=== PATIENT | female | born 1980 | race Caucasian/White ===

== ENCOUNTER 2025-04-05 08:38 | Outpatient (AMB) | payer MEDICAID, SELFPAY ==
[2025-04-05 08:48] VITALS: BMI 53.3
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
== END 2025-04-05 09:19 | disposition home or self-care (01) ==
LOC: HO.HPHYS 08:38
PROVIDERS: PCP Student in an Organized Health Care Education/Training Program; Visit Provider Physical Medicine & Rehabilitation
DX: M53.3 Sacrococcygeal disorders, not elsewhere classified (principal); M46.1 Sacroiliitis, not elsewhere classified
CPT/HCPCS: 99214

== ENCOUNTER → 2025-04-05 08:38 | Outpatient (BNVA) | payer MEDICAID, SELFPAY | PROVIDERS: PCP Student in an Organized Health Care Education/Training Program; Visit Provider Physical Medicine & Rehabilitation | DX: M53.3 Sacrococcygeal disorders, not elsewhere classified (principal); M46.1 Sacroiliitis, not elsewhere classified; G89.29 Other chronic pain; M54.50 Low back pain, unspecified | CPT/HCPCS: 99212 ==

== ENCOUNTER 2025-04-15 09:45 | Outpatient (REF) | payer MEDICAID, SELFPAY ==
--- OUTSIDE RECORDS SUMMARY | 2025-04-15 10:44 | XMS_ITS | Continuity of Care Document ---
Author Organization [facility], Main Office Address [address] [facility] [address] [place] [id number] Care Team Providers Care Agricultural Equipment Sales Manager Name Role Phone BERTRAND OGLESBY Abrasive Coating Machine Operator KALEB STEELE Primary Care Provider JERRY LITTLE Building Construction Foreman [phone] Assessment No assessment recorded. Plan of Treatment Reminders Order Date Submit Date Provider Last Modified By Organization Details Last Modified Time Details Appointments FOLLOW UP 2025 02:45P M KALEB STEELE MD Not available Not available Not available Lab hemoglobi n A1C, fingersti ck 2024 025 In-Office Order, Internal Use Only DO Not Attach Compendium DO Not Attach Compendium, Do Not Delete/merge, [id number] 03/01/2025 14:59:04 Referral None recorded. Procedures None recorded. Surgeries None recorded. Imaging None recorded. Medication Orders atomoxeti ne 40 mg capsule 2024 025 [facility][id number], [address] [place], [id number], 03/01/2025 15:10:30 Mounjaro 5 mg/0.5 mL subcutane ous pen injector 2024 025 [facility] #[id number], [address] [place], [id number], 03/01/2025 15:10:31 Patient TargetsNo targets recorded. Patient Instructions Encounter Date Encounter Id Patient Instructions Last Modified By Organization Details Last Modified Time 03/01/2025 [id number] type 2 diabetes: care instructions Not available 03/01/2025 14:59:04 Reason for Referral None Reported. Results Created Date Observation Date Name Description Value Unit Range Abnormal Flag Note LastModifiedBy Organization Detail LastModifiedTime 03/01/2003/01/2025 hemog lobin A1C, finge rstic k A1C 6.7 % 4-6 high Not Available In-Office Order Internal Use Only DO Not Attach Compendium DO Not Attach Compendium, Do Not Delete/merge, [id number] 03/01/2025 07:45:49 04/04/2004/01/2025 MRI, lumba r plexu s, w/ contr ast No observ ation record ed. [facility] [address], [address], 04/04/2025 20:33:27 Result Notes None recorded. Problems Name Problem SNOMED Code Status Onset Date Resolution Date Notes Provider Name and Address Organization Details Recorded Time Dysuria 10346414 Completed 08/04/2015 Shasha adames [facility] 6 13:57:42 Insomnia 705402225 Completed 08/04/2015 Shasha adames [facility] 6 13:57:42 Fatigue 80889380 Completed 08/04/2015 Shasha adames [facility] 6 13:57:42 Disorder of pregnanc y 534941124 Completed 08/04/2015 Shasha adames [facility] 6 13:57:42 Body mass index 40+ - severely obese 281220009 Completed 10/14/2019 Mindy adames [facility] 4 12:04:21 General examinat ion of patient Completed 200811/16/2013 RECORDED 06/06/19 09 2:41PM BY EMMY HANCOCK MA, ANNOTATI ON/ADDEN DUM Shasha Glading-D ilorenzo null, [facility] 6 13:57:42 General examinat ion of patient Completed 200812/06/2013 RECORDED 06/06/19 09 2:41PM BY EMMY HANCOCK MA, ANNOTATI ON/ADDEN DUM Shasha Glading-D ilorenzo null, [facility] 6 13:57:42 Dysfunct ional uterine bleeding Completed 200811/16/2013 IMPRESSI ON: IRREGULA R MENSES, LONG CYCLES OF 35 DAYS, WILL START OCP'S FOR REGULATI ON,; RECORDED 11/01/19 09 2:28PM BY JUAN M RODAS, CEHLI ON/ADDEN DUM Shasha Glading-D ilorenzo null, [facility] 6 13:57:42 Acute sinusiti s 66400964 Completed 200811/16/2013 RECORDED 11/01/19 09 2:28PM BY JUAN M RODAS, CHELI ON/ADDEN DUM Shasha Glading-D ilorenzo null, [facility] 6 13:57:42 Administ ration of bacteria l and viral vaccine Completed 200811/16/2013 RECORDED 11/01/19 09 2:35PM BY JUAN M RODAS, OFFICE VISIT Shasha Edmondding-D sophiaorenlola adames, [facility] 6 13:57:42 Urinary tract infectio us disease 67121426 Completed 200811/16/2013 RECORDED 11/01/19 09 2:28PM BY CHELI GUERRERO ON/ADDEN DUM Shasha Glading-D ilorenzo null, [facility] 6 13:57:42 Vaginiti s and vulvovag initis Completed 200811/16/2013 RECORDED 11/01/19 09 2:28PM BY MA FRANCIS ADRIANNA, ANNOTATI ON/ADDEN DUM Shasha Glading-D ilorenzo null, [facility] 6 13:57:42 Dysfunct ional uterine bleeding Completed 200812/06/2013 IMPRESSI ON: IRREGULA R MENSES, LONG CYCLES OF 35 DAYS, WILL START OCP'S FOR REGULATI ON,; RECORDED 11/01/19 09 2:28PM BY JUAN M RODAS, CHELI ON/ADDEN DUM Shasha Glading-D ilorenzo null, [facility] 6 13:57:42 Acute sinusiti s 48527911 Completed 200812/06/2013 RECORDED 11/01/19 09 2:28PM BY JUAN M RODAS, CHELI ON/ADDEN DUM Shasha Glading-D ilorenzo null, [facility] 6 13:57:42 Administ ration of bacteria l and viral vaccine Completed 200812/06/2013 RECORDED 11/01/19 09 2:35PM BY JUAN M RODAS, OFFICE VISIT Shasha Glading-D ilorenzo null, [facility] 6 13:57:42 Vaginiti s and vulvovag initis Completed 200812/06/2013 RECORDED 11/01/19 09 2:28PM BY JUAN M RODAS, EMMAATI ON/ADDEN DUM Shasha Glading-D ilorenzo null, [facility] 6 13:57:42 Tubercul osis screenin g Completed 200911/16/2013 DATE: 08/23/19 10; RECORDED 06/22/19 14 12:44PM BY JENELLE COVARRUBIAS MA, CHELI ON/ADDEN DUM Shasha Glading-D ilorenzo null, [facility] 6 13:57:42 Tubercul osis screenin g Completed 200912/06/2013 DATE: 08/23/19 10; RECORDED 06/22/19 14 12:44PM BY JENELLE COVARRUBIAS MA, EMMAATI ON/ADDEN DUM Shasha Glading-D ilorenzo null, [facility] 6 13:57:42 Acute pharyngi tis [id number] Completed 201111/16/2013 IMPRESSI ON: RAPID STREP NEGATIVE ; RECORDED 02/27/20 12 2:30PM BY CHELI SPRINGER ON/ADDEN DUM Shasha Glading-D ilorenzo null, [facility] 6 13:57:42 Screenin g for malignan t neoplasm of cervix Completed 201111/16/2013 RECORDED 02/27/20 12 2:30PM BY CHELI SPRINGER ON/ADDEN DUM Shasha Glading-D ilorenzo null, [facility] 6 13:57:42 Genital herpes simplex 15744754 Completed 201111/16/2013 RECORDED 02/27/20 12 2:31PM BY CHELI SPRINGER ON/ADDEN DUM Emmy aguayo [place] null, [facility] 7 15:01:59 Well child 563547418 Completed 201111/16/2013 RECORDED 02/27/20 12 2:30PM BY CHELI SPRINGER ON/ADDEN DUM Shasha Glading-D ilorenzo null, [facility] 6 13:57:42 Shoulder joint pain 673273669 Completed 201111/16/2013 RECORDED 02/27/20 12 2:30PM BY CHELI SPRINGER ON/ADDEN DUM Shasha Glading-D ilorenzo null, [facility] 6 13:57:42 Eruption 970133676 Completed 201111/16/2013 RECORDED 02/27/20 12 2:30PM BY CHELI SPRINGER ON/ADDEN DUM Shasha Glading-D ilorenzo null, [facility] 6 13:57:42 Adult health examinat ion Completed 201111/16/2013 RECORDED 02/27/20 12 2:30PM BY CHELI SPRINGER ON/ADDEN DUM Shasha Glading-D ilorenzo null, [facility] 6 13:57:42 Acute pharyngi tis 628243613 Completed 201112/06/2013 IMPRESSI ON: RAPID STREP NEGATIVE ; RECORDED 02/27/20 12 2:30PM BY CHELI SPRINGER ON/ADDEN DUM Shasah Glading-D ilorenzo null, [facility] 6 13:57:42 Screenin g for malignan t neoplasm of cervix Completed 201112/06/2013 RECORDED 02/27/20 12 2:30PM BY CHELI SPRINGER ON/ADDEN DUM Shasha Glading-D ilorenzo null, [facility] 6 13:57:42 Well child 544980552 Completed 201112/06/2013 RECORDED 02/27/20 12 2:30PM BY CHELI SPRINGER ON/ADDEN DUM Shasha Glading-D ilorenzo null, [facility] 6 13:57:42 Shoulder joint pain 662198967 Completed 201112/06/2013 RECORDED 02/27/20 12 2:30PM BY CHELI SPRINGER ON/ADDEN DUM Shasha Glading-D ilorenzo null, [facility] 6 13:57:42 Eruption 882185740 Completed 201112/06/2013 RECORDED 02/27/20 12 2:30PM BY CHELI SPRINGER ON/ADDEN DUM Shasha Glading-D ilorenzo null, [facility] 6 13:57:42 Adult health examinat ion Completed 201112/06/2013 RECORDED 02/27/20 12 2:30PM BY CHELI SPRINGER ON/ADDEN DUM Shasha Glading-D ilorenzo null, [facility] 6 13:57:42 Influenz a vaccine needed 44707950766 06 Completed 201211/16/2013 RECORDED 12/31/19 13 2:01PM BY JOSE M LEE, OFFICE VISIT Shasha adames, [facility] 6 13:57:42 Influenz a vaccine needed 54197052292 06 Completed 201212/06/2013 RECORDED 12/31/19 13 2:01PM BY JOSE M LEE, OFFICE VISIT Shasha adames, [facility] 6 13:57:42 Patient status finding [id number] Completed 201308/04/2015 RECORDED 06/22/19 14 12:44PM BY JENELLE COVARRUBIAS MA, OFFICE VISIT Shasha adames, [facility] 6 13:57:42 Knee pain Completed 201311/16/2013 IMPRESSI ON: SOUNDS DUE TO MENISCUS , PT TO SET UP APPT WITH [facility]; RECORDED 06/22/19 14 12:44PM BY JENELLE COVARRUBIAS MA, ANNOTATI ON/ADDEN DUM Shasha adames, [facility] 6 13:57:42 Elevated blood-pr essure reading without diagnosi s of hyperten diann 139466901 Completed 201311/16/2013 IMPRESSI ON: BP WELL CONTROLL ED, LIMITS HER SALT, PT TO WORK ON WEIGHT LOSS; RECORDED 06/22/19 14 12:44PM BY JENELLE COVARRUBIAS MA, ANNOTATI ON/ADDEN DUM Shasha adames, [facility] 6 13:57:42 Corneal ulcer 79800655 Completed 201311/16/2013 RECORDED 06/22/19 14 12:44PM BY JENELLE COVARRUBIAS MA, ANNOTATI ON/ADDEN DUM Shasha Bermeo-D quentin adames, [facility] 6 13:57:42 History of depressi on 941110428 Completed 201308/04/2015 RECORDED 06/22/19 14 12:44PM BY JENELLE COVARRUBIAS MA, OFFICE VISIT Shasha adames [facility] 6 13:57:42 Esstirso l hyperten diann 07531372 Completed 201308/04/2015 IMPRESSI ON: BP UP, SHERRY LOWER SALT AND LOSE WEIGHT, EKG NL, FOLLOWED BY RENAL TOO; RECORDED 06/22/19 14 12:44PM BY JENELLE COVARRUBIAS MA, OFFICE VISIT Shasha adames [facility] 6 13:57:42 Malaise and fatigue 317144972 Completed 201311/16/2013 IMPRESSI ON: ALSO WITH VITILGO, CHECK LABS; RECORDED 06/22/19 14 12:44PM BY JENELLE COVARRUBIAS MA, ANNOTATI ON/ADDEN DUM Shasha adames [facility] 6 13:57:42 Adult health examinat ion Completed 201308/04/2015 IMPRESSI ON: PAP UTD, NEEDS TO LOSE WEIGHT, EXERCISE ; RECORDED 06/22/19 14 12:47PM BY JENELLE COVARRUBIAS MA, OFFICE VISIT Shasha adames [facility] 6 13:57:42 Genital herpes simplex 09151190 Active 2013 JUAN M Sharma, [facility] 7 15:01:59 Pure hypercho lesterol emia 099565919 Completed 201308/04/2015 RECORDED 06/22/19 14 12:44PM BY JENELLE COVARRUBIAS MA, OFFICE VISIT Shasha adames [facility] 6 13:57:42 Overweig ht 623236719 Completed 201311/16/2013 IMPRESSI ON: PT WILL SET UP APPT; RECORDED 06/22/19 14 12:44PM BY JENELLE COVARRUBIAS MA, ANNOTATI ON/ADDEN DUM Shasha adames, [facility] 6 13:57:42 Elevated blood-pr essure reading without diagnosi s of hyperten diann 828949565 Completed 201308/04/2015 IMPRESSI ON: DISCVan SHARMABERNY ENRIQUEZ OF DIET AND WEIGHT LOSS, FOLLOWED BY DIAMANTE 'MOON), HAS UPCOMING APPT.; RECORDED 06/22/19 14 3:43PM BY HERNAN ELIZABETH PA-C, OFFICE VISIT Shasha adames, [facility] 6 13:57:42 Disorder of sacrum 62814319 Completed 201308/04/2015 RECORDED 06/22/19 14 12:44PM BY JENELLE COVARRUBIAS MA, OFFICE VISIT Shasha adames, [facility] 6 13:57:42 Morbid obesity 287410373 Completed 201310/14/2019 Shasha adames, [facility] 0 13:19:30 Knee pain Completed 201312/06/2013 IMPRESSI ON: SOUNDS DUE TO MENISCUS , PT TO SET UP APPT WITH [facility]; RECORDED 06/22/19 14 12:44PM BY JENELLE COVARRUBIAS MA, CHELI ON/ADDEN DUM Shasha adames, [facility] 6 13:57:42 Elevated blood-pr essure reading without diagnosi s of hyperten diann 506368318 Completed 201312/06/2013 IMPRESSI ON: BP WELL CONTROLL ED, LIMITS HER SALT, PT TO WORK ON WEIGHT LOSS; RECORDED 06/22/19 14 12:44PM BY JENELLE COVARRUBIAS MA, ANNOTIZZY ON/ADDEN DUM Shasha adames, [facility] 6 13:57:42 Corneal ulcer 39545668 Completed 201312/06/2013 RECORDED 06/22/19 14 12:44PM BY JENELLE COVARRUBIAS MA, EMMAATI ON/ADDEN DUM Shasha Glading-D ilorenzo null, [facility] 6 13:57:42 Malaise and fatigue 128235304 Completed 201312/06/2013 IMPRESSI ON: ALSO WITH VITILGO, CHECK LABS; RECORDED 06/22/19 14 12:44PM BY JENELLE COVARRUBIAS MA, CHELI ON/ADDEN DUM Shasha Glading-D ilorenzo null, [facility] 6 13:57:42 Overweig ht [id number] Completed 201312/06/2013 IMPRESSI ON: PT WILL SET UP APPT; RECORDED 06/22/19 14 12:44PM BY JENELLE COVARRUBIAS MA, CHELI ON/ADDEN DUM Shasha Glading-D ilorenzo null, [facility] 6 13:57:42 Urinary tract infectio us disease 21574702 Completed 201308/04/2015 RECORDED 09/28/19 14 10:08AM BY ALONZO RUIZ, NURSE TRIAGE Shashaligia Edmondalexandra-D ilorenlola null, [facility] 6 13:57:42 Hyperten sive disorder 17687847 Active 2018 Jose M Lee [place] null, [facility] 9 15:54:20 Chronic depressi on 176694487 Completed 201904/14/2020 Shasha Bermeo-D ilorenzo null, [facility] 16:28:14 Chronic depressi on 242878877 Completed 202006/07/2020 Shasha Glading-D ilorenzo null, [facility] 16:28:14 Family history of breast cancer 907221029 Active 2020 Shasha Bermeo-D ilorenzo null, [facility] 16:49:14 Major depressi on single episode, in partial remissio n 08669720 Active 2021 Shasha Quinonez rogeliotrevonlola null, [facility] 2 16:19:35 Liver enzymes level above referenc e range 452789112 Active 2021 Loreto sargent null, [facility] 2 00:00:26 Recurren t urinary tract infectio n 684269059 Active 2021 Theresa Saucedo PA-C [address], [place], [address], [facility] 2 11:36:03 Obstruct brennon sleep apnea syndrome 22675752 Active 2023 KALEB STEELE MD [address] [facility] [address], [place], [address], [facility] 4 16:20:53 Type 2 diabetes mellitus without complica tion 015096364 Active 2023 KALEB STEELE MD [address], [place], [address], [facility] 4 13:50:32 Problem Notes None recorded. Procedures Surgical History Date Name Laterality Status Provider Name and Address Organization Details Recorded Time 5 Date of Last Colonoscopy completed Ghazala Reaves [facility] 06/30/2024 12:10:26 5 Colonoscopy completed Ghazala Reaevs [facility] 06/30/2024 12:10:10 5 Diabetic Foot Exam (Monofilament) completed KALEB STEELE MD [address] [facility] [address], [place], [address], [facility] 05/05/2024 15:30:49 4 Most Recent Mammogram completed Lninea Jay [facility] 02/10/2024 11:05:45 2 Mammogram both breasts completed Adina Evans [facility] 01/28/2022 13:25:36 2 Date of Last Pap Smear completed Jose M Lee MA [facility] 10/24/2022 09:13:57 6 Tubal Ligation completed Dawn Day RN [facility] 05/05/2015 07:57:57 1 Caesarean Section completed Dahlia Guerrero MA [facility] 10/19/2021 14:26:57 Caesarean Section completed Jose M Lee MA [facility] 10/18/2020 15:27:47 Imaging Results None recorded. Procedure Notes None recorded. Medical Equipment None Reported. Allergies Allergen ID Allergen Name Allergen Category Reaction Reaction Severity Criticality Documentation Date Start Date Code Code System Note Provider Name and Address Organization Details Recorded Time 28026 Zoloft medicatio n nausea severe Not available 09/03/2019 12442 RxNorm JUAN M Springer [facility] 0 14:18:29 23336 sertralin e medicatio n Not available Not available Not available 03/17/2025 21663 RxNorm Not Available alex - External Data Service - prod 5 15:05:59 Medications Name Sig Start Date Stop Date Status Note LastModified by Organization Details LastModified Time plus 27-1 mg tabs 08/02 completed Not Available Not Available Not Available oxycodone hcl 5 mg tabs active Not Available Not Available Not Available valacyclo vir hcl 500 mg tabs active Not Available Not Available Not Available nitrofura ntoin monohydra te/macroc rystals 100 mg caps active Not Available Not Available Not Available sodium sulfaceta mide/sulf ur cleanser 10-5 % emul active Not Available Not Available Not Available metronida zole 500 mg tabs active Not Available Not Available Not Available bren-be 0.35 mg tabs active Not Available Not Available Not Available Prescript ion - Prior Authoriza tion Request active Not Available Not Available Not Available preplus 27-1 mg tabs active Not Available Not Available Not Available valacyclo vir hcl 1 gm tabs active Not Available Not Available Not Available mupirocin 2 % oint active Not Available Not Available Not Available fluoxetin e 40 mg capsule 10/18 completed Not Available Not Available Not Available paroxetin e 10 mg tablet TAKE 1 TABLET BY MOUTH EVERY DAY FOR 14 DAYS 03/01 completed Not Available Not Available Not Available citalopra m 40 mg tablet TAKE 1 TABLET BY MOUTH EVERY DAY active Not Available Not Available No t Available trazodone 50 mg tablet Take 1 tablet as needed by oral route at bedtime for 30 days. 04/14 completed Not Available Not Available Not Available tizanidin e 4 mg tablet 04/12 completed Not Available Not Available Not Available fluconazo le 150 mg tablet EVERY 3 DAYS 11/23 completed RECORDED 06/06/19 09 9:59AM BY BALTAZAR Mckeon NP, MEDICATI ON [facility]; Not Available Not Available Not Available citalopra m 10 mg tablet TAKE 1 TABLET BY MOUTH EVERY DAY FOR 14 DAYS 03/01 completed Not Available Not Available Not Available valacyclo vir 1 gram tablet TAKE 1 TABLET BY MOUTH EVERY DAY active Not Available Not Available No t Available meloxicam 15 mg tablet TAKE 1 TABLET BY MOUTH EVERY DAY 2024 active Not Available Not Available Not Avai lable metronida zole 0.75 % (37.5 mg/5 gram) vaginal gel EACH EVENING 08/02 completed Not Available Not Available Not Available lisinopri l 20 mg tablet TAKE 1 TABLET BY MOUTH EVERY DAY DIRECTED 05/17 completed Not Available Not Available Not Available Tubersol 5 tub. unit/0.1 mL intraderm al injection solution Inject 0.1 mL as needed by intrader mal route. 09/23 completed Not Available Not Available Not Available sulfaceta mide sodium-murillo lfur 10 %-5 % (w/w) topical cleanser aplly to skin and wash daily 10/18 completed Not Available Not Available Not Available metronida zole 500 mg tablet 09/23 completed Not Available Not Available Not Available ciproflox acin 250 mg tablet Take 1 tablet every 12 hours by oral route for 7 days. active Not Available Not Available No t Available levofloxa tavo 250 mg tablet TAKE 1 TABLET BY MOUTH EVERY DAY FOR 5 DAYS 06/26 completed Not Available Not Available Not Available valacyclo vir 500 mg tablet TAKE 2 TABLETS BY MOUTH EVERY DAY 04/19 completed Not Available Not Available Not Available sulfameth oxazole 800 mg-trimet hoprim 160 mg tablet TAKE 1 TABLET BY MOUTH EVERY 12 HOURS FOR 7 DAYS 06/26 completed Not Available Not Available Not Available peg-elect rolyte solution 420 gram oral solution AT 5PM EVENING BEFORE MIX AND DRINK 8OZ GLASS AT YOUR OWN PACE UNTIL 1ST HALF COMPLETE THEN FINISH 2ND HALF 6 HOURS PRIOR TO PROCEDUR E 08/06 completed Not Available Not Available Not Available ofloxacin 0.3 % ear drops INSTILL 10 DROPS INTO AFFECTED EAR(S) BY OTIC ROUTE ONCE DAILY 7 10/30 completed Not Available Not Available Not Available citalopra m 20 mg tablet TAKE 1 TABLET BY MOUTH EVERY DAY FOR 14 DAYS 03/01 completed Not Available Not Available Not Available potassium chloride ER 20 mEq tablet,ex tended release(p art/cryst ) Take 1 tablet every day by oral route for 30 days. 04/12 completed Not Available Not Available Not Available prednisol one acetate 1 % eye drops,regis pension TAKE 1 DROP OPERATIV E EYE THREE TIMES DAILY FOR 5 DAYS FOLLOWIN G LASER 04/19 completed Not Available Not Available Not Available econazole nitrate 1 % topical cream Apply TO affected AREA ON foot TWICE A DAY FOR 3 consecut brennon WEEKS 10/30 completed Not Available Not Available Not Available cephalexi n 500 mg capsule active Not Available Not Available Not Available paroxetin e 20 mg tablet TAKE 1 TABLET BY MOUTH EVERY DAY 2024 active Not Available Not Available Not Avai lable ranitidin e 150 mg tablet 1 IN AM 1 IN PM 02/26 completed RECORDED 02/27/20 12 2:34PM BY JOSE M LEE, OFFICE VISIT; Not Available Not Available Not Available lisinopri l 10 mg tablet TAKE 1 TABLET BY MOUTH EVERY DAY DIRECTED 12/27 completed Not Available Not Available Not Available propranol ol ER 80 mg capsule,2 4 hr,extend ed release 10/18 completed Not Available Not Available Not Available metronida zole 0.75 % topical cream RYAN AA BID 10/18 completed Not Available Not Available Not Available lisinopri l 30 mg tablet TAKE 1 TABLET BY MOUTH EVERY DAY active Not Available Not Available No t Available sertralin e 25 mg tablet Take 1 tablet every day by oral route for 30 days. 07/19 completed Not Available Not Available Not Available Cleocin 2 % vaginal cream AT BEDTIME 11/26 completed RECORDED 06/06/19 09 9:59AM BY BALTAZAR Mckeon NP, MEDICATI ON [facility]; Not Available Not Available Not Available lisinopri l 5 mg tablet Take 1 tablet every day by oral route for 30 days. 04/12 completed Not Available Not Available Not Available hydrochlo rothiazid e 25 mg tablet 1 po prn 12/22 completed Not Available Not Available Not Available mometason e 0.1 % topical ointment APPLY TOPICALL Y TO THE AFFECTED AREA TWICE DAILY FOR 2 WEEKS NEEDED FOR ECZEMA active Not Available Not Available No t Available metoprolo l succinate ER 25 mg tablet,ex tended release 24 hr TAKE 1 TABLET BY MOUTH EVERY DAY active Not Available Not Available No t Available clobetaso l 0.05 % topical ointment apply thin layer 09/10 completed Not Available Not Available Not Available ketoconaz ole 2 % topical cream APPLY TO FOOT TWICE DAILY FOR TWO WEEKS 09/10 completed Not Available Not Available Not Available doxycycli ne hyclate 100 mg tablet Take 1 tablet twice a day by oral route for 7 days. 04/22 completed Not Available Not Available Not Available sulindac 200 mg tablet 04/12 completed Not Available Not Available Not Available naproxen 500 mg tablet Take 1 tablet twice a day by oral route for 15 days. 08/27 completed Not Available Not Available Not Available diazepam 5 mg tablet TAKE 1 TABLET BY MOUTH 2 HOURS BEFORE PROCEDUR E. MAY REPEAT 1 TIME 1 HOUR BEFORE PROCEDUR E active Not Available Not Available No t Available amoxicill in 875 mg-potass ium clavulana te 125 mg tablet BID 06/16 completed RECORDED 10/28/19 09 11:26AM BY BALTAZAR Mckeon NP, MEDICATI ON [facility] N; Not Available Not Available Not Available clindamyc in 1 % lotion APPLY TOPICALL Y TO THE AFFECTED AREA TWICE DAILY NEEDED 10/30 completed Not Available Not Available Not Available atomoxeti ne 40 mg capsule TAKE 1 CAPSULE BY MOUTH EVERY DAY 2024 active Not Available Not Available Not Avai lable bupropion HCl XL 300 mg 24 hr tablet, extended release TAKE 1 TABLET BY MOUTH EVERY DAY 2024 active Not Available Not Available Not Avai lable bupropion HCl XL 150 mg 24 hr tablet, extended release TAKE 1 TABLET BY MOUTH EVERY DAY active Not Available Not Available No t Available nitrofura ntoin monohydra te/macroc rystals 100 mg capsule TAKE 1 CAPSULE BY MOUTH EVERY 12 HOURS WITH MEALS FOR 5 DAYS 10/18 completed Not Available Not Available Not Available Vitamin D3 2000 po qd active Not Available Not Available No t Available Estrostep Fe-28 QD 11/08 completed RECORDED 11/09/19 10 1:12PM BY JUAN M MOULTON, OFFICE VISIT; Not Available Not Available Not Available BD Ultra-Fin e Short Pen Needle 31 gauge x 5/16 USE DIRECTED TO ADMINIST ER OZEMPIC active Not Available Not Available No t Available diclofena c 1 % topical gel APPLY 2 GRAMS TOPICALL Y TO THE AFFECTED AREA FOUR TIMES DAILY active Not Available Not Available No t Available Vitamin D-3 with Aloe 120 mg-1,000 unit-10 mg tablet Take 1 tablet every day by oral route. 11/09 completed Not Available Not Available Not Available glucosam- chondroit in-vit C-Mn 1 tablet po daily active Not Available Not Available No t Available B12 1 po qd active Not Available Not Avail able Not Available Animi-3 With Vitamin D 500 mg-1,000 unit-500 mcg capsule Take 1 capsule every day by oral route. 06/07 completed Not Available Not Available Not Available PrePlus 27 mg iron-1 mg tablet active Not Available Not Available Not Available sulfaceta mide sodium 10 % topical cleanser, gel 07/19 completed Not Available Not Available Not Available Ozempic 1 mg/dose (4 mg/3 mL) subcutane ous pen injector INJECT 1MG EVERY WEEK 08/06 completed Not Available Not Available Not Available Ozempic 2 mg/dose (8 mg/3 mL) subcutane ous pen injector INJECT 2MG UNDER THE SKIN EVERY WEEK 11/04 completed pa approved thru Not Available Not Available Not Available Mounjaro 5 mg/0.5 mL subcutane ous pen injector ADMINIST ER 5 MG UNDER THE SKIN EVERY WEEK 2024 active Not Available Not Available Not Avai abraham Mounjaro 2.5 mg/0.5 mL subcutane ous pen injector ADMINIST ER 2.5 MG UNDER THE SKIN EVERY WEEK 03/01 completed Not Available Not Available Not Available Ozempic 0.25 mg or 0.5 mg (2 mg/3 mL) subcutane ous pen injector active Not Available Not Available Not Available Zepbound 2.5 mg/0.5 mL subcutane ous pen injector Inject 2.5 mg every week by subcutan eous route for 28 days. 11/09 completed I know pt had HNE but could we try to fight it, it would really be helpful for her Not Available Not Available Not Available Vitals Date Recorded Body height Body mass index (BMI) Body weight Oxygen saturation Heart rate Body temperature Systolic And Diastolic Provider Name and Address Organization Details Last Updated DateTime 5 161.29 cm 53.3 kg/m2 099394. 47 g 98 % 94 /min 98.1 [degF] 129/84 mm[Hg] Jose M Lee MA [facility] 14:50:13 Social History Question Answer Notes LastModified by Organizat ion Details LastModified Time Tobacco Smoking Status Never Smoker [facility]/24[facility]2014 14:59:44 Do You Have An Advance Directive? No Information not available 12/27/2021 Is Blood Transfusion Acceptable In An Emergency? Yes [email or web address] Information not available 08/04/2015 What Is Your Level Of Caffeine Consumption? Occasional [email or web address] Information not available 06/24/2014 How Much Tobacco Do You Chew? None Information not available 08/27/2016 In The 14 Days Before Symptom Onset, Have You Had Close Contact With A Laboratory-confir med COVID-19 While That Case Was Ill? No Information not available 12/27/2021 In The 14 Days Before Symptom Onset, Have You Had Close Contact With A Person Who Is Under Investigation For COVID-19 While That Person Was Ill? No Information not available 12/27/2021 Have You Been To An Area Known To Be High Risk For COVID-19? No Information not available 12/27/2021 What Type Of Diet Are You Following? REGULAR [email or web address] Information not available 06/24/2014 Which Illicit Or Recreational Drugs Have You Used? None Information not available 10/19/2021 Live Alone Or With Others? With Others With [employer] [facility] Information not available 10/31/2023 Do You Take Precautions To Prevent Distracted Driving? Yes [email or web address] Information not available 08/04/2015 How Often Do You Need To Have Someone Help You When You Read Instructions, Pamphlets, Or Other Written Material From Your Doctor Or Pharmacy? Sometimes [email or web address] Information not available 08/04/2015 Have You Served In The ? [email or web address] [place] Information not available 08/27/2016 Have You Or Anyone In Your Household Had Any Of The Following Symptoms In The Last 14 Days: Sore Throat, Cough, Chills, Body Aches For Unknown Reasons, Shortness Of Breath For Unknown Reasons, Loss Of Smell, Loss Of Taste, Fever At Or Greater Than 100 Degrees Fahrenheit? No [email or web address] Information not available 10/24/2022 Are You Or Anyone In Your Household A Health Care Provider Or Emergency Responder? No [email or web address] Information not available 12/23/2019 To The Best Of Your Knowledge Have You Been In Close Proximity To Any Individual Who Tested Positive For COVID-19? No [email or web address] Information not available 12/23/2019 *AWV ONLY* Are You Presently Prescribed Opioid Medication By PCP Or Specialist? If YES -Provider Assess The Benefit For Other, Non-opioid Pain Therapies Instead, Even If The Patient Does Not Have OUD But Is Possibly At Risk. No Information not available 10/19/2021 Have You Recently Traveled To A COVID-19 High Risk Area Or Gathering In The Last 10 Days? No [email or web address] Information not available 05/18/2020 What Was The Date Of Your Most Recent Tobacco Screening? 01/11/2025 [email or web address] Information not available 01/11/2025 How Many Children Do You Have? 4 Information not available 08/27/2016 Do You Use Protection During Sex? No Information not available 08/27/2016 Do You Use Your Seat Belt Or Car Seat Routinely? Yes Information not available 10/19/2021 Seat Belts Used Routinely Yes Information not available 12/27/2021 Are You Sexually Active? Yes Information not available 08/27/2016 Smoke Alarm In Home Yes Information not available 12/27/2021 Do You Have Smoke And Carbon Monoxide Detectors In Your Home? Yes Information not available 10/19/2021 At What Age Did You Start Smoking Tobacco? 0 Information not available 08/27/2016 Are You Passively Exposed To Smoke? No Information no t available 08/27/2016 How Much Tobacco Do You Smoke? No Information not available 08/27/2016 General Stress Level High [email or web address] Information not available 10/24/2022 Do You Use Sunscreen Routinely? No Information not available 10/19/2021 How Many Years Have You Smoked Tobacco? 0 Information not available 08/27/2016 Sex: Unknown Functional Status Question Answer Note LastModified by Organizat ion Details LastModified Time Do you use any illicit or recreational drugs? No Information not available 12/27/2021 Do you or have you ever used any other forms of tobacco or nicotine? No Information not available 12/27/2021 What is your level of alcohol consumption? None Information not available 06/24/2014 Do you or have you ever used smokeless tobacco? Never used smokeless tobacco [email or web address] Information not available 10/14/2019 Are you currently employed? Yes Information not available 06/24/2014 Are you able to walk independently without assistance or assistive devices? [email or web address] Information not available 12/27/2021 Are you able to care for yourself independently? 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 Never used electronic cigarettes Information not available 12/27/2021 What is your exercise level? None [email or web address] Information not available 06/24/2014 Mental Status None recorded. Family History Relationship Description Onset Age of this Age Resolved Age Notes LastModified by Organization Details LastModified Time Mother History of hypertension Not available 04/2021 08:14:33 Mother Hypertensive disorder 62 [email or web address] Not available 13:47:52 Mother Malignant neoplasm of breast 62 [email or web address] Not available 13:48:14 Father Hypertensive disorder [email or web address] Not available 06/24 14:58:40 Father Coronary arterioscler osis Had an LVAD implan doron 2022 64 [email or web address] Not available 10/24/2022 09:12:56 Sister Hypertensive disorder [email or web address] Not available 09/13 10:46:31 Sister Donnie thyroiditis 42 Not available 04/2021 08:14:33 Notes:NO FH of colon or jana st Medical History Condition Response Gout N Other N Kidney Stones N Blood Diseases N Hyperthyroidism N Breast Cancer N Hypothyroidism N Lung Disease N Depression Y COPD N Defects or Inherited Disease N Anesthesia Complications N Headaches/Migraines N Anxiety Disorder Y Varicose Veins N Obesity Y Vision or Eye Problems N Arthritis N Head Injury/Concussion N Infertility N Polyps N Congenital Anomalies N Acid Reflux (GERD) Y Cancer N Stroke N ADHD N Endometriosis N High Cholesterol N Liver Disease N Fibromyalgia N Kidney Disease N Heart Problems N Ear or Hearing Problems N Hospitalizations N Thyroid Problems N GI Problems N Acne N Eating Disorder N Skin Problems N Anemia N Constipation N Bladder Problems N Mental Illness Y Diabetes N Ovarian Cancer N Blood Transfusions N Seizures/Epilepsy N Tuberculosis N AIDS/HIV N Congestive Heart Failure (CHF) N Eczema Y Abuse/Domestic Violence N Diverticulitis N Asthma N Allergies N Reflux/GERD N Hepatitis N Pulmonary Embolism N Hypertension Y Chicken Pox Y Autism Spectrum Disorder (ASD) N Osteoporosis N Gynecological History Statement/Question Response Date of Last Pap Smear 04/28/2021 Date of Last Colonoscopy 06/28/2024 Most Recent Mammogram 02/07/2024 Desired Control Method Sterilizati on Obstetrics History GPAL:G 0 P 0 0 0 0 Immunizations Vaccine Type Date Status Note Provider Nam e and Address Organization Details Recorded Time Tdap 5 completed Not Available [facility] 05/15/2019 02:21:44 COVID-19, mRNA, LNP-S, PF, 30 mcg/0.3 mL dose 1 completed JUAN M Springer, [facility] 04/18/2021 13:28:59 COVID-19, mRNA, LNP-S, PF, 30 mcg/0.3 mL dose 1 completed JUAN M Springer, [facility] 04/18/2021 13:29:34 COVID-19, mRNA, LNP-S, PF, 30 mcg/0.3 mL dose 1 completed JUAN M Springer, [facility] 04/18/2021 13:30:17 Influenza, split virus, quadrivalent, PF 1 completed JUAN M Springer, [facility] 12/27/2021 15:00:35 Influenza, split virus, trivalent, PF 4 completed Jose MJUAN M Mckinney, [facility] 12/27/2021 15:00:35 Influenza, split virus, quadrivalent, PF 0 completed Jose MJUAN M Mckinney, [facility] 12/27/2021 15:00:36 Influenza, split virus, quadrivalent, PF 5 completed Jose MJUAN M Mckinney, [facility] 12/27/2021 15:00:36 Influenza, split virus, quadrivalent, PF 7 completed Jose Mfrantz Lee MA rosangela, [facility] 12/27/2021 15:00:36 Influenza, split virus, quadrivalent, PF 8 completed Jose M George MA null, [facility] 12/27/2021 15:00:36 Influenza, split virus, quadrivalent, PF 6 completed Jose Mfrantz Lee MA rosangela, [facility] 12/27/2021 15:00:36 COVID-19, mRNA, LNP-S, bivalent, PF, 30 mcg/0.3 mL dose 2 completed Myra Dunlap null, [facility] 10/24/2022 09:02:55 HPV9 3 completed Jose M Lee MA null, [facility] 05/17/2023 09:00:43 HPV9 3 completed Jose M Lee MA null, [facility] 05/17/2023 09:00:43 COVID-19, mRNA, LNP-S, PF, gail-sucrose, 30 mcg/0.3 mL 4 completed Jose M Lee MA null, [facility] 05/17/2023 09:00:43 MMR 4 completed Hernan Winkler MA null, [facility] 10/31/2023 13:39:17 MMR 4 completed Linnea Jay null, [facility] 09/02/2023 09:05:59 HPV9 4 completed Hernan Winkler MA null, [facility] 10/31/2023 13:39:17 Tdap 4 completed Jose M Lee MA null, [facility] 02/02/2024 09:09:04 Tdap 4 completed Not Available [facility] 03/01/2025 14:38:25 Influenza, split virus, quadrivalent, PF 9 completed Not Available [facility] 05/15/2019 02:22:10 DTaP 9 completed Not Available [facility] 11/09/2013 14:06:30 IPV 9 completed Not Available [facility] 11/09/2013 14:06:30 IPV 9 completed Not Available [facility] 11/09/2013 14:06:30 [facility]TaP 9 completed [facility] Available [facility] 11/09/2013 14:06:30 MMR 0 completed Not Available [facility] 11/09/2013 14:06:30 DTaP 0 completed Not Available [place]11/09/2013 14:06:30 IPV 0 completed Not Available [facility] 11/09/2013 14:06:30 IPV 3 completed Not Available [place]11/09/2013 14:06:30 DTaP 3 completed Not Available [facility] 11/09/2013 14:06:31 MMR 3 completed Not Available [facility] 11/09/2013 14:06:31 Td (adult), 2 Lf tetanus toxoid, preservative free, adsorbed 4 completed Not Available [facility] 11/09/2013 14:06:31 Hep B, adolescent or pediatric 5 completed Not Available [facility] 11/09/2013 14:06:31 Hep B, adolescent or pediatric 5 completed Not Available [facility] 11/09/2013 14:06:31 Hep B, adolescent or pediatric 6 completed Not Available [facility] 11/09/2013 14:06:31 Td (adult), 2 Lf tetanus toxoid, preservative free, adsorbed 9 completed Not Available [facility] 11/09/2013 14:06:31 varicella 2 completed Not Available [facility] 11/09/2013 14:06:31 Tdap 9 completed Not Available [facility] 11/09/2013 14:06:31 Influenza, split virus, trivalent, preservative 9 completed Not Available [facility] 11/09/2013 14:06:31 Influenza, split virus, trivalent, preservative 0 completed Not Available [facility] 11/09/2013 14:06:31 influenza, seasonal, intradermal, preservative free 2 completed Not Available [facility] 11/09/2013 14:06:31 influenza, seasonal, intradermal, preservative free 3 completed Not Available [facility] 11/09/2013 14:06:32 Influenza, split virus, quadrivalent, PF [facility] 10:57:25 Influenza, split virus, trivalent, PF 4 completed KALEB STEELE MD [address] [address], [place], [address] [facility] [place] 09:31:43 Influenza, split virus, trivalent, PF 5 completed KALEB STEELE MD [address] [facility] [address], [place], [address] [facility] [place]/11/[place]25 11:35:43 Past Encounters Encounter ID Performer Location Encounter Start Date Encounter Closed Date Diagnosis/Indication Diagnosis SNOMED-CT Code Diagnosis ICD10 Code Diagnosis IMO Codes Diagnosis Note [id number] KALEB STEELE MD Main Office [address] [id number] 03/01/2025 14:36:29 03/01/2025 15:15:56 Hypertensive disorder [id number] I10 - at goal- BP today is 129/84- c/w lisinopril from 30mg QD and metoprolol succinate ER 25mg QD Pt counselled on:-Dietar y Approaches to Stop Hypertensi on (DASH) is an eating plan rich in fruits, vegetables , whole grains, fish, poultry, nuts, legumes, and low-fat dairy. These foods are high in ware nutrients such as potassium, magnesium, calcium, fiber, and protein.-A dvised continued adherence to medication s and low salt diet - extensive counsellin g done regarding dietary habits.-En couraged regular aerobic exercise 30 min for 4-5 x week.-BP monitoring at home advised to bring log at every visit-Side -effects of high BP can cause Stroke, Heart attack and even d/w pt-D/w pt when to call 911 or reach out to Health care provider:> Think you are having a reaction to a medicine you are taking.>Montes ve headaches that keep coming back (recurring ).>Feel dizzy.>Hav e swelling in your ankles.>Montes ve trouble with your vision. 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- pt is currently in the switch citalopram to paroxetine > now completely off citalopram > currently on paroxetine 10mg for 14mg and to to increase to 20mg after that period> paroxetine was chosen because she is having vasomotor symptoms of menopause> please note also discussed duloxetine - c/w wellbutrin 300mg QD- pt has tried fluoxetine and sertraline (caused severe nausea)- does not see a therapist, this was recommende d- denies SI/HI- nena montes [facility] provided Generalize d anxiety disorder [id number] F41.1 [id number] - JAKI-7 score of 18- stable- c/w wellbutrin from 300mg -> pt is having less heart palpitatio ns on this dosage- most likely due to increase stress patient is having with her daughter- also has a hard time because 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- will switch citalopram to paroxetine > within the next two weeks decrease citalopram from 40mg to 20mg> after two weeks decrease citalopram from 20mg to 10mg and start paroxetine 10mg QD> after two weeks stop citalopram 10mg and increase paroxetine to 20mg> paroxetine was chosen because she is having vasomotor symptoms of menopause> please note also discussed duloxetine - nena montes de oca provided Chronic low back pain 27 [id number] M54.50 G89.29 [id number] - has problem on the SI joint, hx of accident- was physiatry however cannot go back due to financial constraint s and ther was no improvemen t after injection therapy- x-ray of the spine showed degenerati ve disease- pt referred to [facility] and seen on 02/21/2025 > MRI of the lumbar spine ordered Poor concentration 23697 005 R41.840 802244 - pt as never been diagnosed with ADHD but is 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- pt was advised to see a psychiatri st to check for this diagnosis and to see medication s would be indicated- will try of course of atomoxetin e 40mg QD- pt already on wellbutrin Health Concerns Section Related Observation LastModified by Organization Detai ls LastModified Time None Recorded Concern Status LastModified by Organization Details LastModified Time None Recorded Payers Encounter Date Sequence Insurance Name Policy Number Policy Mata Covered Member ID Mata Member ID Guarantor Name 03/01/2025 1 [place] [facility] Johana Wellington [id number] Johana Wellington Notes Date Note Type Note Provider Name and Address Organization Details Recorded Time 03/01/2025 text/html Hypertension F/UReported by PatientHPIFor lifestyle, patient reportsnot exercising regularlybut reportslimiting/trena iding salt. For associated symptoms, patient reportsno dizziness,no lightheadedness,no chest pain,no shortness of breath,no palpitations,no edema, andno calf pain with exertion. For medications, patient reportstaking medications as directedandno side effects from medication. Diabetes F/UReported by PatientHPIFor context, patient reportsnot seeing eye doctor yearly (last seen in october of 2023). For associated symptoms, patient reportsno weight gain,no weight loss,no dizziness,no sweats,no headaches,no confusion,no increased thirst,no increased appetite,no increased urination,no blurred vision,no numbness of feet, andno calluses on feet.ROS as noted in the HPI Johana Wellington is a 44 year old F who was seen in the clinic for follow-up on her blood pressure and diabetes. Patient is currently following with [facility] for her right knee. Received a cortisol shot as she could not walk. Has a follow-up on 04/04. Patient is currently being titrated to a new anti-anxiety medication. Is experiencing anxiety with this switch. KALEB STEELE MD [address] [address], [place], [address], [facility] [place]01/[place]25 19:23:44 OBGyn Episode No OBEpisode recorded.
--- OUTSIDE RECORDS SUMMARY | 2025-04-15 10:44 | XMS_ITS | Data Portability ---
Author Organization [facility], Main Office Address [address] 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 Plan of Treatment Reminders Order Date Submit Date Provider Last Modified By Organization Details Last Modified Time Details Appointments FOLLOW UP 2025 02:45P Elaine PATEL MD Not available Not available Not available Lab hemogl obin A1C, finger stick 2024 025 In-Office Order, Internal Use Only DO Not Attach Compendium DO Not Attach Compendium, Do Not Delete/merge, [id number] 03/01/2025 14:59:04 BMP, serum or plasma 2024 025 [facility]LEX [facility] (Centralized Electronic Ordering - All Locations), Patient Can Go To The Location Of Their Choice, [id number] 11/09/2024 06:07:04 lipid panel, serum 2024 025 [facility]LEX [facility], [address], [place], [address], 11/09/2024 06:07:06 Mycoba cteriu m tuberc ulosis stimul ated gamma interf renate, qual, blood 2024 025 [facility]LEX [facility], [address] [place], [address], 11/09/2024 06:07:07 CBC w/ auto diff 2024 025 [facility]LEX [facility], [address], [place], [address], 11/09/2024 06:07:03 TSH, ultra- sensit brennon, serum 2024 025 [facility]LEX [facility], [address], [place], [address], 11/09/2024 06:07:09 HbA1c (hemog lobin A1c), blood 2024 025 ALEX [facility] (Centralized Electronic Ordering - All Locations), Patient Can Go To The Location Of Their Choice, [facility] 11/09/2024 06:07:08 microa lbumin /creat inine, mass ratio, urine 2024 025 ALEX [facility] (Centralized Electronic Ordering - All Locations), Patient Can Go To The Location Of Their Choice, [facility] 11/09/2024 06:07:07 hepati c functi on panel, serum 2024 025 ALEX [facility] (Centralized Electronic Ordering - All Locations), Patient Can Go To The Location Of Their Choice, [facility] 11/09/2024 06:07:05 hemogl obin A1C, finger stick 2024 025 ALEX In-Office Order, Internal Use Only DO Not Attach Compendium DO Not Attach Compendium, Do Not Delete/merge, [id number] 08/06/2024 09:59:38 hemogl obin A1C, finger stick 2024 025 In-Office Order, Internal Use Only DO Not Attach Compendium DO Not Attach Compendium, Do Not Delete/merge, [id number] 05/06/2024 10:07:46 Referral physic al medici ne and brittany wagner on referr al 2024 025 ALEX Marie MD, [address] , [facility] [address], [place], [address], 02/21/2025 16:15:30 Procedures None record ed. Surgeries None record ed. Imaging XR, lumbos acral spine, 2 or 3 view - hx of injury 2024 [email or web address] Not available 08/20/2024 10:14:08 PFT, comple te 2024 [email or web address] Not available 05/25/2024 13:34:54 Medication Orders atomox etine 40 mg capsul e 2024 025 [place] [facility] #[id number], [address] [place], [place], [id number], 03/01/2025 15:10:30 Mounja ro 5 mg/0.5 mL subcut aneous pen inject or 2024 025 [place] [facility] #[id number], [address] [place], [place], [id number], 03/01/2025 15:10:31 citalo pram 20 mg tablet 2024 025 [place] [facility] #[id number], [address] [place], [place], [id number], 03/01/2025 14:58:05 citalo pram 10 mg tablet 2024 025 [id number], [address] [place], [place], [id number], 03/01/2025 14:57:51 paroxe brittney 20 mg tablet 2024 025 [facility] #93999, [address] [place], [place], [id number], 01/11/2025 11:35:55 paroxe brittney 10 mg tablet 2024 025 [facility]77172, [address] [place], [place], [id number], 03/01/2025 15:04:53 Mounja ro 2.5 mg/0.5 mL subcut aneous pen inject or 2024 025 [facility] #[id number], [address] [place], [place], [id number], 03/01/2025 15:04:56 metopr olol succin ate ER 25 mg tablet ,exten ded releas e 24 hr 2024 025 [facility] #[id number], [address] [place], [place], [id number], 08/06/2024 10:11:29 Ozempi c 2 mg/dos e (8 mg/3 mL) subcut aneous pen inject or 2024 025 [facility] #10549, [address], [place], [id number], 11/04/2024 09:40:33 Ozempi c 1 mg/dos e (4 mg/3 mL) subcut aneous pen inject or [address] [facility] #[id number], [address], [place], [id number], 08/06/2024 10:15:06 Patient TargetsNo targets recorded. Patient Instructions Encounter Date Encounter Id Patient Instructions Last Modified By Organization Details Last Modified Time 05/06/2024 [id number] sleep apnea: car e instructions Not available 05/06/2024 10:07:45 type 2 diabetes: care instructions Not available 05/06/2024 10:07:44 medical record request* Not available 05/13/2024 11:36:27 08/06/2024 [id number] sleep apnea: car e instructions Not available 08/06/2024 10:11:24 type 2 diabetes: care instructions Not available 08/06/2024 10:11:24 11/04/2024 [id number] medical record request* Not available 11/04/2024 14:26:07 When You Want to Lose Weight: Care Instructions Not available 11/04/2024 10:01:28 03/01/2025 [id number] type 2 diabetes: care instructions Not available 03/01/2025 14:59:04 Reason for Referral Physical Medicine And Rehabi litation Referral for Chronic low back pain Referring Physician: Mary Patel, Family Medicine, Encounter Date: 01/11/2025 Results Created Date Observation Date Name Description Value Unit Range Abnormal Flag Note LastModifiedBy Organization Detail LastModifiedTime 05/06/1905/06/2024 hemog lobin A1C, finge rstic k A1C 6.2 % 4-6 abnormal Not Available In-Office Order Internal Use Only DO Not Attach Compendium DO Not Attach Compendium, Do Not Delete/merge, [id number] 05/05/2024 15:30:44 08/07/19 25 08/06/2024 hemog lobin A1C, finge rstic k A1C 6.1 % 4-6 abnormal Not Available In-Office Order Internal Use Only DO Not Attach Compendium DO Not Attach Compendium, Do Not Delete/merge, [id number] 08/06/2024 07:40:52 11/05/19 25 11/04/2024 CBC WITH DIFFE RENTI AL/PL ATELE T WBC 8.4 x10e3 /uL 3.4-10 .8 normal Not Available [facility] ([facility]) [address] [place], [address], 11/09/2024 06:07:03 11/05/19 25 11/04/2024 CBC WITH DIFFE RENTI AL/PL ATELE T RBC 4.96 x10e6 /uL 3.77-5 .28 normal Not Available [facility] ([facility]) [address] [place], [address], 11/09/2024 06:07:03 11/05/19 25 11/04/2024 CBC WITH DIFFE RENTI AL/PL ATELE T hemoglobin 13.4 g/dL 11.1-1 5.9 normal Not Available [facility] ([facility]) [address] [facility], [place], [address], 11/09/2024 06:07:03 11/05/19 25 11/04/2024 CBC WITH DIFFE RENTI AL/PL ATELE T hematocrit 42.6 % 34.0-4 6.6 normal Not Available [facility] ([facility]) [address] [facility], [place], [address], 11/09/2024 06:07:03 11/05/19 25 11/04/2024 CBC WITH DIFFE RENTI AL/PL ATELE T MCV 86 fL 79-97 normal Not Available [facility] ([facility]) [address] [facility], [place], [address], 11/09/2024 06:07:03 11/05/19 25 11/04/2024 CBC WITH DIFFE RENTI AL/PL ATELE T MCH 27.0 pg 26.6-3 3.0 normal Not Available [facility] ([facility]) [address] [place], [address], 11/09/2024 06:07:03 11/05/19 25 11/04/2024 CBC WITH DIFFE RENTI AL/PL ATELE T MCHC 31.5 g/dL 31.5-3 5.7 normal Not Available [facility] ([facility]) [address] [place], [address], 11/09/2024 06:07:03 11/05/19 25 11/04/2024 CBC WITH DIFFE RENTI AL/PL ATELE T RDW 14.6 % 11.7-1 5.4 Not Available [facility] ([facility]) [address] [place], [address], 11/09/2024 06:07:03 11/05/19 25 11/04/2024 CBC WITH DIFFE RENTI AL/PL ATELE T platelets 296 x10e3 /uL 150-45 0 normal Not Available [facility] ([facility]) [address] [facility], [place], [address], 11/09/2024 06:07:03 11/05/19 25 11/04/2024 CBC WITH DIFFE RENTI AL/PL ATELE T neutrophils 60 % not estab. normal Not Available [facility] ([facility]) [address] [facility], [place], [address], 11/09/2024 06:07:03 11/05/19 25 11/04/2024 CBC WITH DIFFE RENTI AL/PL ATELE T lymphs 30 % not estab. normal Not Available [facility] ([facility]) [address] [facility], [place], [address], 11/09/2024 06:07:03 11/05/19 25 11/04/2024 CBC WITH DIFFE RENTI AL/PL ATELE T monocytes 8 % not estab. normal Not Available [facility] ([facility]) [address] [facility], [place], [address], 11/09/2024 06:07:03 11/05/19 25 11/04/2024 CBC WITH DIFFE RENTI AL/PL ATELE T eos 1 % not estab. normal Not Available [facility] ([facility]) [address] [place], [address], 11/09/2024 06:07:03 11/05/19 25 11/04/2024 CBC WITH DIFFE RENTI AL/PL ATELE T basos 1 % not estab. normal Not Available [facility] ([facility]) [address] [place], [address], 11/09/2024 06:07:03 11/05/19 25 11/04/2024 CBC WITH DIFFE RENTI AL/PL ATELE T immature cells SECURITY TRAINER Not Available [facility] ([facility]) [address] [place], [address], 11/09/2024 06:07:03 11/05/19 25 11/04/2024 CBC WITH DIFFE RENTI AL/PL ATELE T neutrophils (absolute) 5.0 x10e3 /uL 1.4-7. 0 normal Not Available [facility] ([facility]) [address] [place], [address], 11/09/2024 06:07:03 11/05/19 25 11/04/2024 CBC WITH DIFFE RENTI AL/PL ATELE T lymphs (absolute) 2.6 x10e3 /uL 0.7-3. 1 normal Not Available [facility] ([facility]) [address] [place], [address], 11/09/2024 06:07:03 11/05/19 25 11/04/2024 CBC WITH DIFFE RENTI AL/PL ATELE T monocytes(ab solute) 0.6 x10e3 /uL 0.1-0. 9 normal Not Available [facility] ([facility]) [address] [place], [address], 11/09/2024 06:07:03 11/05/19 25 11/04/2024 CBC WITH DIFFE RENTI AL/PL ATELE T eos (absolute) 0.1 x10e3 /uL 0.0-0. 4 normal Not Available [facility] ([facility]) [address] [place], [address], 11/09/2024 06:07:03 11/05/19 25 11/04/2024 CBC WITH DIFFE RENTI AL/PL ATELE T baso (absolute) 0.1 x10e3 /uL 0.0-0. 2 normal Not Available [facility] ([facility]) [address] [place], [address], 11/09/2024 06:07:03 11/05/19 25 11/04/2024 CBC WITH DIFFE RENTI AL/PL ATELE T immature granulocytes 0 % not estab. Not Available [facility] ([facility]) [address] [facility], [place], [address], 11/09/2024 06:07:03 11/05/19 25 11/04/2024 CBC WITH DIFFE RENTI AL/PL ATELE T immature grans (abs) 0.0 x10e3 /uL 0.0-0. 1 Not Available [facility] ([facility]) [address] [facility], [place], [address], 11/09/2024 06:07:03 11/05/19 25 11/04/2024 CBC WITH DIFFE RENTI AL/PL ATELE T NRBC SECURITY TRAINER Not Available [facility] ([facility]) [address] [facility], [place], [address], 11/09/2024 06:07:03 11/05/19 25 11/04/2024 CBC WITH DIFFE RENTI AL/PL ATELE T hematology comments: SECURITY TRAINER Not Available [facility] ([facility]) [address] [facility], [place], [address], 11/09/2024 06:07:03 11/05/19 25 11/04/2024 BASIC METAB OLIC PANEL (8) glucose 89 mg/dL 70-99 normal Not Available [facility] ([facility]) [address] [place], [address], 11/09/2024 06:07:04 11/05/19 25 11/04/2024 BASIC METAB OLIC PANEL (8) BUN 12 mg/dL 6-24 normal Not Available [facility] ([facility]) [address] [place], [address], 11/09/2024 06:07:04 11/05/19 25 11/04/2024 BASIC METAB OLIC PANEL (8) creatinine 0.71 mg/dL 0.57-1 .00 normal Not Available [facility] ([facility]) [address] [place], [address], 11/09/2024 06:07:04 11/05/19 25 11/04/2024 BASIC METAB OLIC PANEL (8) eGFR 106 mL/mi n/1.7 3 >59 normal Not Available [facility] ([facility]) [address] [facility], [place], [address], 11/09/2024 06:07:04 11/05/19 25 11/04/2024 BASIC METAB OLIC PANEL (8) BUN/creatini ne ratio 17 9-23 normal Not Available [facility] ([facility]) [address] [place], [address], 11/09/2024 06:07:04 11/05/19 25 11/04/2024 BASIC METAB OLIC PANEL (8) sodium 138 mmol/ L 134-14 4 normal Not Available [facility] ([facility]) [address] [place], [address], 11/09/2024 06:07:04 11/05/19 25 11/04/2024 BASIC METAB OLIC PANEL (8) potassium 4.7 mmol/ L 3.5-5. 2 normal Not Available [facility] ([facility]) [address] [place], [address], 11/09/2024 06:07:04 11/05/19 25 11/04/2024 BASIC METAB OLIC PANEL (8) chloride 103 mmol/ L 96-106 normal Not Available [facility] ([facility]) [address] [place], [address], 11/09/2024 06:07:04 11/05/19 25 11/04/2024 BASIC METAB OLIC PANEL (8) carbon dioxide, total 21 mmol/ L 20-29 normal Not Available [facility] ([facility]) [address] [place], [address], 11/09/2024 06:07:04 11/05/19 25 11/04/2024 BASIC METAB OLIC PANEL (8) calcium 9.3 mg/dL 8.7-10 .2 normal Not Available [facility] ([facility]) [address] [place], [address], 11/09/2024 06:07:04 11/05/19 25 11/04/2024 HEPAT IC FUNCT ION PANEL (7) protein, total 6.7 g/dL 6.0-8. 5 normal Not Available [facility] ([facility]) [address] [place], [address], 11/09/2024 06:07:05 11/05/19 25 11/04/2024 HEPAT IC FUNCT ION PANEL (7) albumin 4.1 g/dL 3.9-4. 9 normal Not Available [facility] ([facility]) [address] [place], [address], 11/09/2024 06:07:05 11/05/19 25 11/04/2024 HEPAT IC FUNCT ION PANEL (7) bilirubin, total 0.4 mg/dL 0.0-1. 2 normal Not Available [facility] ([facility]) [address] [place], [address], 11/09/2024 06:07:05 11/05/19 25 11/04/2024 HEPAT IC FUNCT ION PANEL (7) alkaline phosphatase 159 IU/L 44-121 above high normal Not Available [facility] ([facility]) [address] [place], [address], 11/09/2024 06:07:05 11/05/19 25 11/04/2024 HEPAT IC FUNCT ION PANEL (7) AST (SGOT) 35 IU/L 0-40 normal Not Available [facility] ([facility]) [address] [place], [address], 11/09/2024 06:07:05 11/05/19 25 11/04/2024 HEPAT IC FUNCT ION PANEL (7) ALT (SGPT) 45 IU/L 0-32 above high normal Not Available [facility] ([facility]) [address] [facility] [place], [address], 11/09/2024 06:07:05 11/05/19 25 11/05/2024 HEPAT IC FUNCT ION PANEL (7) bilirubin, direct 0.14 mg/dL 0.00-0 .40 normal Not Available [facility] ([facility]) [address] [facility] [place], [address], 11/09/2024 06:07:05 11/05/19 25 11/04/2024 LIPID PANEL cholesterol, total 193 mg/dL 100-19 9 normal Not Available [facility] ([facility]) [address] [facility] [place], [address], 11/09/2024 06:07:06 11/05/19 25 11/04/2024 LIPID PANEL triglyceride s 129 mg/dL 0-149 normal Not Available [facility] ([facility]) [address] [facility] [place], [address], 11/09/2024 06:07:06 11/05/19 25 11/04/2024 LIPID PANEL HDL cholesterol 52 mg/dL >39 normal Not Available [facility] ([facility]) [address] [facility] [place], [address], 11/09/2024 06:07:06 11/05/19 25 11/04/2024 LIPID PANEL VLDL cholesterol uyen 23 mg/dL 5-40 Not Available [facility] ([facility]) [address] [place], [address], 11/09/2024 06:07:06 11/05/19 25 11/04/2024 LIPID PANEL LDL chol calc (nih) 118 mg/dL 0-99 above high normal Not Available [facility] ([facility]) [address] [place], [address], 11/09/2024 06:07:06 11/05/1911/04/2024 LIPID PANEL LDL calc comment: SECURITY TRAINER Not Available [facility] ([facility]) [address] [facility], [place], [address], 11/09/2024 06:07:06 11/05/19 25 11/05/2024 ALBUM IN/CR EAT RATIO , RANDO M UR creatinine, urine 189.3 mg/dL not estab. normal Not Available [facility] ([facility]) [address] [facility], [place], [address], 11/09/2024 06:07:07 11/05/19 25 11/05/2024 ALBUM IN/CR EAT RATIO , RANDO M UR albumin, urine 8.9 ug/mL not estab. Not Available [facility] ([facility]) [address] [facility], [place], [address], 11/09/2024 06:07:07 11/05/19 25 11/05/2024 ALBUM IN/CR EAT RATIO , RANDO M UR alb/creat ratio 5 mg/g_ creat 0-29 Nano l: 0 - 29 Moder ately incre ased: 30 - 300 Sever lida incre ased: >300 Not Available [facility] ([facility]) [address] [facility], [place], [address], 11/09/2024 06:07:07 11/05/19 25 11/06/2024 QUANT IFERO N-TB GOLD PLUS quantiferon incubation Incuba tion perfor med. Not Available [facility] ([facility]) [address] [facility], [place], [address], 11/09/2024 06:07:07 11/05/19 25 11/06/2024 QUANT IFERO N-TB GOLD PLUS quantiferon criteria Commen t Quant iFERO N-TB Gold Plus is a quali tativ e indir ect test for M tuber culos is infec tion (incl uding disea se) and is inten ded for use in conju nctio n with risk asses sment , radio graph y, and other medic al and diagn ostic evalu ation s. The Quant iFERO N-TB Gold Plus resul t is deter mined by subtr actin g the Nil value from eithe r TB antig en (Ag) value . The Mitog en tube serve s as a contr ol for the test. Not Available [facility] ([facility]) [address] [place], [address], 11/09/2024 06:07:07 11/05/19 25 11/09/2024 QUANT IFERO N-TB GOLD PLUS quantiferon TB1 Ag value 0.13 IU/mL Not Available [facility] ([facility]) [address] [place], [address], 11/09/2024 06:07:07 11/05/19 25 11/09/2024 QUANT IFERO N-TB GOLD PLUS quantiferon TB2 Ag value 0.11 IU/mL Not Available [facility] ([facility]) [address] [place], [address], 11/09/2024 06:07:07 11/05/19 25 11/09/2024 QUANT IFERO N-TB GOLD PLUS quantiferon nil value 0.13 IU/mL Not Available [facility] ([facility]) [address] [place], [address], 11/09/2024 06:07:07 11/05/19 25 11/09/2024 QUANT IFERO N-TB GOLD PLUS quantiferon mitogen value >10.00 IU/mL Not Available [facility] ([facility]) [address] [place], [address], 11/09/2024 06:07:07 11/05/19 25 11/09/2024 QUANT IFERO N-TB GOLD PLUS quantiferon- TB gold plus Negati ve negati ve No respo nse to M tuber culos is antig ens detec doron. Infec tion with M tuber culos is is unlik lida, but high risk indiv idual s shoul d be consi dered for addit ional testi ng (ATS/ IDSA/ CDC Clini uyen Pract ice Guide lines , 2017) . The refer ence range is an Antig en minus Nil resul t of <0.35 IU/mL . Chemi lumin escen ce immun oassa y metho dolog y Not Available [facility] ([facility]) [address] [facility], [place], [address], 11/09/2024 06:07:07 11/05/19 25 11/05/2024 HEMOG LOBIN A1C hemoglobin A1C 6.2 % 4.8-5. 6 above high normal Predi abete s: 5.7 - 6.4 Diabe gagan: >6.4 Glyce smita contr ol for adult s with diabe gagan: <7.0 Not Available [facility] ([facility]) [address] [facility], [place], [address], 11/09/2024 06:07:08 11/05/19 25 11/05/2024 TSH RFX ON ABNOR MAL TO FREE T4 TSH 1.830 uIU/m L 0.450- 4.500 normal Not Available [facility] ([facility]) [address] [facility], [place], [address], 11/09/2024 06:07:09 03/01/20 25 03/01/2025 hemog lobin A1C, finge rstic k A1C 6.7 % 4-6 high Not Available In-Office Order Internal Use Only DO Not Attach Compendium DO Not Attach Compendium, Do Not Delete/merge, [id number] 03/01/2025 07:45:49 05/13/1904/01/2024 , [facility] ardio gram No observ ation record ed. [facility] [address], [place], [address], 05/18/2024 13:41:56 10/22/19 25 10/11/2024 XR, lumbo sacra l spine , 2 or 3 view No observ ation record ed. [facility] Not Available 2024 08:15:37 10/22/19 25 10/11/2024 PFT, compl ete No observ ation record ed. [facility] Not Available 2024 20:55:07 04/04/20 25 04/01/2025 MRI, lumba r plexu s, w/ contr ast No observ ation record ed. [facility] [address], [place], [address], 04/04/2025 20:33:27 Result Notes None recorded. Problems Name Problem SNOMED Code Status Onset Date Resolution Date Notes Provider Name and Address Organization Details Recorded Time Dysuria 08339691 Completed 08/04/2015 Shasha adames [facility] 6 13:57:42 Insomnia 310226272 Completed 08/04/2015 Shasha adames [facility] 6 13:57:42 Fatigue 32956218 Completed 08/04/2015 Shasha adames [facility] 6 13:57:42 Disorder of pregnanc y 492717670 Completed 08/04/2015 Shasha adames [facility] 6 13:57:42 Body mass index 40+ - severely obese 554857544 Completed 10/14/2019 Mindy adames [facility] 4 12:04:21 General examinat ion of patient Completed 200811/16/2013 RECORDED 06/06/19 09 2:41PM BY RENATO HANCOCK MA, ANNOTATI ON/ADDEN DUM Shasha adames [facility] 6 13:57:42 General examinat ion of patient Completed 200812/06/2013 RECORDED 06/06/19 09 2:41PM BY RENATO HANCOCK MA, ANNOTATI ON/ADDEN DUM Shasha Glading-D ilorenzo null, [facility] 6 13:57:42 Dysfunct ional uterine bleeding Completed 200811/16/2013 IMPRESSI ON: IRREGULA R MENSES, LONG CYCLES OF 35 DAYS, WILL START OCP'S FOR REGULATI ON,; RECORDED 11/01/19 09 2:28PM BY CHELI GUERRERO ON/ADDEN DUM Shasha Glading-D ilorenzo null, [facility] 6 13:57:42 Acute sinusiti s 42075607 Completed 200811/16/2013 RECORDED 11/01/19 09 2:28PM BY JUAN M RODAS, CHELI ON/ADDEN DUM Shasha Glading-D ilorenzo null, [facility] 6 13:57:42 Administ ration of bacteria l and viral vaccine Completed 200811/16/2013 RECORDED 11/01/19 09 2:35PM BY JUAN M RODAS, OFFICE VISIT Shasha Feliding-D ilorenzo null, [facility] 6 13:57:42 Urinary tract infectio us disease 35730253 Completed 200811/16/2013 RECORDED 11/01/19 09 2:28PM BY JUAN M RODAS, CHELI ON/ADDEN DUM Shasha Glading-D ilorenzo null, [facility] 6 13:57:42 Vaginiti s and vulvovag initis Completed 200811/16/2013 RECORDED 11/01/19 09 2:28PM BY JUAN M RODAS, CHELI ON/ADDEN DUM Shasha Glading-D ilorenzo null, [facility] 6 13:57:42 Dysfunct ional uterine bleeding Completed 200812/06/2013 IMPRESSI ON: IRREGULA R MENSES, LONG CYCLES OF 35 DAYS, WILL START OCP'S FOR REGULATI ON,; RECORDED 11/01/19 09 2:28PM BY JUAN M RODAS, ANNOTATI ON/ADDEN DUM Shasha Glading-D ilorenzo null, [facility] 6 13:57:42 Acute sinusiti s [id number] Completed 200812/06/2013 RECORDED 11/01/19 09 2:28PM BY JUAN M RODAS, ANNOTATI ON/ADDEN DUM Shasha Glading-D ilorenzo null, [facility] 6 13:57:42 Administ ration of bacteria l and viral vaccine Completed 200812/06/2013 RECORDED 11/01/19 09 2:35PM BY JUAN M RODAS, OFFICE VISIT Shasha Feliding-D ilorenzo null, [facility] 6 13:57:42 Vaginiti s and vulvovag initis Completed 200812/06/2013 RECORDED 11/01/19 09 2:28PM BY JUAN M RODAS, ANNOTATI ON/ADDEN DUM Shasha Glading-D ilorenzo null, [facility] 6 13:57:42 Tubercul osis screenin g Completed 200911/16/2013 DATE: 08/23/19 10; RECORDED 06/22/19 14 12:44PM BY JENELLE COVARRUBIAS MA, ANNOTATI ON/ADDEN DUM Shasha Glading-D ilorenzo null, [facility] 6 13:57:42 Tubercul osis screenin g Completed 200912/06/2013 DATE: 08/23/19 10; RECORDED 06/22/19 14 12:44PM BY JENELLE COVARRUBIAS MA, ANNOTATI ON/ADDEN DUM Shasha Glading-D ilorenzo null, [facility] 6 13:57:42 Acute pharyngi tis [id number] Completed 201111/16/2013 IMPRESSI ON: RAPID STREP NEGATIVE ; RECORDED 02/27/20 12 2:30PM BY SUN LEE, CHELI ON/ADDEN DUM Shasha Glading-D ilorenzo null, [facility] 6 13:57:42 Screenin g for malignan t neoplasm of cervix Completed 201111/16/2013 RECORDED 02/27/20 12 2:30PM BY CHELI SPRINGER ON/ADDEN DUM Shasha Glading-D ilorenzo null, [facility] 6 13:57:42 Genital herpes simplex [id number] Completed 201111/16/2013 RECORDED 02/27/20 12 2:31PM BY CHELI SPRINGER ON/ADDEN DUM Renato aguayo [place] null, [facility] 7 15:01:59 Well child [id number] Completed 201111/16/2013 RECORDED 02/27/20 12 2:30PM BY CHELI SPRINGER ON/ADDEN DUM Shasha Glading-D sophiaorenzo null, [facility] 6 13:57:42 Shoulder joint pain [id number] Completed 201111/16/2013 RECORDED 02/27/20 12 2:30PM BY CHELI SPRINGER ON/ADDEN DUM Shasha Glading-D ilorenzo null, [facility] 6 13:57:42 Eruption [id number] Completed 201111/16/2013 RECORDED 02/27/20 12 2:30PM BY CHELI SPRINGER ON/ADDEN DUM Shasha Glading-D ilorenzo null, [facility] 6 13:57:42 Adult health examinat ion Completed 201111/16/2013 RECORDED 02/27/20 12 2:30PM BY CHELI SPRINGER ON/ADDEN DUM Shasha Glading-D ilorenzo null, [facility] 6 13:57:42 Acute pharyngi tis [id number] Completed 201112/06/2013 IMPRESSI ON: RAPID STREP NEGATIVE ; RECORDED 02/27/20 12 2:30PM BY CHELI SPRINGER ON/ADDEN DUM Shasha Glading-D ilorenzo null, [facility] 6 13:57:42 Screenin g for malignan t neoplasm of cervix Completed 201112/06/2013 RECORDED 02/27/20 12 2:30PM BY CHELI SPRINGER ON/ADDEN DUM Shasha Glading-D ilorenzo null, [facility] 6 13:57:42 Well child [id number] Completed 201112/06/2013 RECORDED 02/27/20 12 2:30PM BY CHELI SPRINGER ON/ADDEN DUM Shasha Glading-D ilorenzo null, [facility] 6 13:57:42 Shoulder joint pain 068633008 Completed 201112/06/2013 RECORDED 02/27/20 12 2:30PM BY CHELI SPRINGER ON/ADDEN DUM Shasha Glading-D ilorenzo null, [facility] 6 13:57:42 Eruption [id number] Completed 201112/06/2013 RECORDED 02/27/20 12 2:30PM BY CHELI SPRINGER ON/ADDEN DUM Shasha Glading-D ilorenzo null, [facility] 6 13:57:42 Adult health examinat ion Completed 201112/06/2013 RECORDED 02/27/20 12 2:30PM BY CHLEI SPRINGER ON/ADDEN DUM Shasha Glading-D ilorenzo null, [facility] 6 13:57:42 Influenz a vaccine needed [id number] 06 Completed 201211/16/2013 RECORDED 12/31/19 13 2:01PM BY SUN LEE, OFFICE VISIT Shasha Bermeo-D sophiaorenlola null, [facility] 6 13:57:42 Influenz a vaccine needed 48712007847 06 Completed 201212/06/2013 RECORDED 12/31/19 13 2:01PM BY SUN LEE, OFFICE VISIT Shasha adames, [facility] 6 13:57:42 Patient status finding [id number] Completed 201308/04/2015 RECORDED 06/22/19 14 12:44PM BY JENELLE COVARRUBIAS MA, OFFICE VISIT Shasha adames, [facility] 6 13:57:42 Knee pain Completed 201311/16/2013 IMPRESSI ON: SOUNDS DUE TO MENISCUS , PT TO SET UP APPT WITH [facility]; RECORDED 06/22/19 14 12:44PM BY JENELLE COVARRUBIAS MA, ANNOTATI ON/ADDEN DUM Shasha adames, [facility] 6 13:57:42 Elevated blood-pr essure reading without diagnosi s of hyperten diann [id number] Completed 201311/16/2013 IMPRESSI ON: BP WELL CONTROLL ED, LIMITS HER SALT, PT TO WORK ON WEIGHT LOSS; RECORDED 06/22/19 14 12:44PM BY JENELLE COVARRUBIAS MA, ANNOTATI ON/ADDEN DUM Shasha adames, [facility] 6 13:57:42 Corneal ulcer 99208702 Completed 201311/16/2013 RECORDED 06/22/19 14 12:44PM BY JENELLE COVARRUBIAS MA, ANNOTATI ON/ADDEN DUM Shasha adames, [facility] 6 13:57:42 History of depressi on [id number] Completed 201308/04/2015 RECORDED 06/22/19 14 12:44PM BY JENELLE COVARRUBIAS MA, OFFICE VISIT Shasha adames, [facility] 6 13:57:42 [facility] l hyperten diann 04245849 Completed 201308/04/2015 IMPRESSI ON: BP UP, SHERRY LOWER SALT AND LOSE WEIGHT, EKG NL, FOLLOWED BY RENAL TOO; RECORDED 06/22/19 14 12:44PM BY JENELLE COVARRUBIAS MA, OFFICE VISIT Shasha adames [facility] 6 13:57:42 Malaise and fatigue [id number] Completed 201311/16/2013 IMPRESSI ON: ALSO WITH VITILGO, CHECK LABS; RECORDED 06/22/19 14 12:44PM BY JENELLE COVARRUBIAS MA, EMMAATI ON/ADDEN DUM Shasha adames [facility] 6 13:57:42 Adult health examinat ion Completed 201308/04/2015 IMPRESSI ON: PAP UTD, NEEDS TO LOSE WEIGHT, EXERCISE ; RECORDED 06/22/19 14 12:47PM BY JENELLE COVARRUBIAS MA, OFFICE VISIT Shasha adames [facility] 6 13:57:42 Genital herpes simplex 59572965 Active 2013 JUAN M Sharma, [facility] 7 15:01:59 Pure hypercho lesterol emia 929751941 Completed 201308/04/2015 RECORDED 06/22/19 14 12:44PM BY JENELLE COVARRUBIAS MA, OFFICE VISIT Shasha adames [facility] 6 13:57:42 [place] ht [id number] Completed 201311/16/2013 IMPRESSI ON: PT WILL SET UP APPT; RECORDED 06/22/19 14 12:44PM BY JENELLE COVARRUBIAS MA, ANNOTATI ON/ADDEN DUM Shasha adames [facility] 6 13:57:42 Elevated blood-pr essure reading without diagnosi s of hyperten diann [id number] Completed 201308/04/2015 IMPRESSI ON: DISC. RADHA ENRIQUEZ OF DIET AND WEIGHT LOSS, FOLLOWED BY WNERTA(O 'MUSTAFA), HAS UPCOMING APPT.; RECORDED 06/22/19 14 3:43PM BY YUE ELIZABETH PA-C, OFFICE VISIT Shasha adames [facility] 6 13:57:42 Disorder of sacrum 12853865 Completed 201308/04/2015 RECORDED 06/22/19 14 12:44PM BY JENELLE COVARRUBIAS MA, OFFICE VISIT Shasha adames [facility] 6 13:57:42 Morbid obesity 660228039 Completed 201310/14/2019 Shasha adames, [facility] 0 13:19:30 Knee pain Completed 201312/06/2013 IMPRESSI ON: SOUNDS DUE TO MENISCUS , PT TO SET UP APPT WITH [facility]; RECORDED 06/22/19 14 12:44PM BY JENELLE COVARRUBIAS MA, EMMAATI ON/ADDEN DUM Shasha adames [facility] 6 13:57:42 Elevated blood-pr essure reading without diagnosi s of hyperten diann 654997933 Completed 201312/06/2013 IMPRESSI ON: BP WELL CONTROLL ED, LIMITS HER SALT, PT TO WORK ON WEIGHT LOSS; RECORDED 06/22/19 14 12:44PM BY JENELLE COVARRUBIAS MA, EMMAATI ON/ADDEN DUM Shasha adames [facility] 6 13:57:42 Corneal ulcer 75425379 Completed 201312/06/2013 RECORDED 06/22/19 14 12:44PM BY JENELLE COVARRUBIAS MA, ANNOTATI ON/ADDEN DUM Shasha adames [facility] 6 13:57:42 Malaise and fatigue 853527493 Completed 201312/06/2013 IMPRESSI ON: ALSO WITH VITILGO, CHECK LABS; RECORDED 06/22/19 14 12:44PM BY JENELLE COVARRUBIAS MA, ANNOTATI ON/ADDEN DUM Shasha Bermeo-D ilorenzo null, [facility] 6 13:57:42 [place] ht [id number] Completed 201312/06/2013 IMPRESSI ON: PT WILL SET UP APPT; RECORDED 06/22/19 14 12:44PM BY JENELLE COVARRUBIAS MA, ANNOTATI ON/ADDEN DUM Shasha Bermeo-D ilorenzo null, [facility] 6 13:57:42 Urinary tract infectio us disease 73773234 Completed 201308/04/2015 RECORDED 09/28/19 14 10:08AM BY ALONZO RUIZ, NURSE TRIAGE Shasha Bermeo-D ilorenzo null, [facility] 6 13:57:42 Hyperten sive disorder 62541177 Active 2018 Sun Lee [place] null, [facility] 9 15:54:20 Chronic depressi on 649701610 Completed 201904/14/2020 Shashaeliecer Edmondding-D ilorenzo null, [facility] 1 16:28:14 Chronic depressi on 091070585 Completed 202006/07/2020 Shasha Glading-D ilorenzo null, [facility] 1 16:28:14 Family history of breast cancer 813725675 Active 2020 Shasha Glading-D ilorenzo null, [facility] 1 16:49:14 Major depressi on single episode, in partial remissio n 98720495 Active 2021 Shasha Glading-D ilorenzo null, [facility] 2 16:19:35 Liver enzymes level above referenc e range 393451611 Active 2021 Loreto sargent null, [facility] 2 00:00:26 Recurren t urinary tract infectio n 998379170 Active 2021 Theresa Saucedo PA-C [address], [facility], [address], [facility] 2 11:36:03 Obstruct brennon sleep apnea syndrome 41632260 Active 2023 MARY PATEL MD [address] [facility] [address], [place], [address], [facility] 4 16:20:53 Type 2 diabetes mellitus without complica tion 904668791 Active 2023 MARY PATEL MD [address], [facility] [place], [address], [facility] 4 13:50:32 Problem Notes None recorded. Procedures Surgical History Date Name Laterality Status Provider Name and Address Organization Details Recorded Time 5 Date of Last Colonoscopy completed Ghazala Reaves [facility] 06/30/2024 12:10:26 5 Colonoscopy completed Ghazala Reaves [facility] 06/30/2024 12:10:10 5 Diabetic Foot Exam (Monofilament) completed MARY PATEL MD [address] [facility] [address], [place], [address], [facility] 05/05/2024 15:30:49 4 Most Recent Mammogram completed Linnea Jay [facility] 02/10/2024 11:05:45 2 Mammogram both breasts completed Adina Evans [facility] 01/28/2022 13:25:36 2 Date of Last Pap Smear completed Sun Lee MA [facility] 10/24/2022 09:13:57 6 Tubal Ligation completed Dawn Day RN [facility] 05/05/2015 07:57:57 1 Caesarean Section completed Dahlia Guerrero MA [facility] 10/19/2021 14:26:57 Caesarean Section completed Sun Lee JUAN M [facility] 10/18/2020 15:27:47 Imaging Results None recorded. Procedure Notes None recorded. Medical Equipment None Reported. Allergies Allergen ID Allergen Name Allergen Category Reaction Reaction Severity Criticality Documentation Date Start Date Code Code System Note Provider Name and Address Organization Details Recorded Time 62764 Zoloft medicatio n nausea severe Not available 09/03/2019 00047 RxNorm Sun Brasherace JUAN M rosangela [facility] 0 14:18:29 76076 sertralin e medicatio n Not available Not available Not available 03/17/2025 80274 RxNorm Not Available alex - External Data [...] Available Not Available Not Available sulfaceta mide sodium-hendrix lfur 10 %-5 % (w/w) topical cleanser [...] 8OZ GLASS AT YOUR OWN PACE UNTIL HALF COMPLETE THEN FINISH 2ND HALF 6 [...] 02/26 completed RECORDED 02/27/20 12 2:34PM BY SUN LEE, OFFICE VISIT; Not Available Not Available [...] completed RECORDED 06/06/19 09 9:59AM BY BALTAZAR Mckeon, ANIVAL, MEDICATI ON AUTO-MARY GRACE CTIVATIO N; Not [...] completed RECORDED 10/28/19 09 11:26AM BY BALTAZAR Mckeon, ANIVAL, MEDICATI ON AUTO-MARY GRACE CTIVATIO N; Not [...] e Short Pen Needle 31 gauge x 09/10 USE DIRECTED TO ADMINIST ER OZEMPIC active [...] Not Available Not Available Not Avai lable Mounjaro 2.5 mg/0.5 mL subcutane ous pen [...] height Body mass index (BMI) Body weight Heart rate Oxygen saturation Body temperature Systolic And Diastolic Provider Name and Address Organization Details Last Updated DateTime 5 161.29 cm 52.1 kg/m2 232052. 12 g 96 /min 98 % 98.1 [degF] 129/86 mm[Hg] Analilia Su MA [facility] 5 09:41:48 Date Recorded Body height Body mass index (BMI) Body weight Heart rate Oxygen saturation Body temperature Systolic And Diastolic Provider Name and Address Organization Details Last Updated DateTime 5 161.29 cm 52 kg/m2 486639. 53 g 98 /min 99 % 97.9 [degF] 135/84 mm[Hg] [facility]ue [facility]inkler [facility] 5 10:00:01 Date Recorded Body height Body mass index (BMI) Body weight Heart rate Oxygen saturation Body temperature Systolic And Diastolic Provider Name and Address Organization Details Last Updated DateTime 5 161.29 cm 50.9 kg/m2 081695. 97 g 91 /min 98 % 97.6 [degF] 122/80 mm[Hg] Analilia Su [facility] 5 09:29:28 Date Recorded Body height Body mass index (BMI) Body weight Oxygen saturation Heart rate Body temperature Systolic And Diastolic Provider Name and Address Organization Details Last Updated DateTime 5 161.29 cm 52.1 kg/m2 516475. 12 g 99 % 95 /min 97.5 [degF] 124/85 mm[Hg] Sun Lee MA [facility] 5 11:07:59 Date Recorded Body height Body mass index (BMI) Body weight Oxygen saturation Heart rate Body temperature Systolic And Diastolic Provider Name and Address Organization Details Last Updated DateTime 5 161.29 cm 53.3 kg/m2 466370. 47 g 98 % 94 /min 98.1 [degF] 129/84 mm[Hg] Sun Lee MA [facility] 5 14:50:13 Social History Question Answer Notes LastModified by Organizat ion Details LastModified Time Tobacco Smoking Status [facility] 14:59:44 Do You Have An Advance Directive? No Information not available 12/27/2021 Is Blood Transfusion Acceptable In An Emergency? Yes Information not available 08/04/2015 What Is Your Level Of Caffeine Consumption? Occasional [email or web address] Information not available 06/24/2014 How Much Tobacco [...] Type Of Diet Are You Following? REGULAR [email or web address] Information not available 06/24/2014 Which Illicit Or Recreational Drugs Have You Used? None Information not available 10/19/2021 Live Alone Or With Others? With Others With 2 Of The [employer] susan Information not available 10/31/2023 Do You Take Precautions To Prevent Distracted Driving? Yes [email or web address] Information not available 08/04/2015 How Often Do You Need To Have Someone Help You When You Read Instructions, Pamphlets, Or Other Written Material From Your Doctor Or Pharmacy? Sometimes Information not available 08/04/2015 Have You Served In The ? No Information not available 08/27/2016 Have You Or Anyone In Your Household Had Any Of The Following Symptoms In The Last 14 Days: Sore Throat, Cough, Chills, Body Aches For Unknown Reasons, Shortness Of Breath For Unknown Reasons, Loss Of Smell, Loss Of Taste, Fever At Or Greater Than 100 Degrees Fahrenheit? No [email or web address] Information not available 10/24/2022 Are You Or Anyone In Your Household A Health Care Provider Or Emergency Responder? No [email or web address] Information not available 12/23/2019 To The Best Of Your Knowledge Have You Been In Close Proximity To Any Individual Who Tested Positive For COVID-19? No [email or web address] Information not available 12/23/2019 *AWV ONLY* Are [...] Gathering In The Last 10 Days? No [email or web address] Information not available 05/18/2020 What Was The Date Of Your Most Recent Tobacco Screening? 01/11/2025 [email or web address] Information not available 01/11/2025 How Many Children [...] not available 08/27/2016 General Stress Level High Information not available 10/24/2022 Do You Use [...] is your level of alcohol consumption? None [email or web address] Information not available 06/24/2014 Do you or have you ever used smokeless tobacco? Never used smokeless tobacco Information not available 10/14/2019 Are you currently employed? Yes [email or web address] Information not available 06/24/2014 Are you able to walk independently without assistance or assistive devices? [email or web address] Information not available 12/27/2021 Are you able to care for yourself independently? 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 Never used electronic cigarettes Information not available 12/27/2021 What is your exercise level? None [email or web address] Information not available 06/24/2014 Mental Status None recorded. Family History Relationship Description Onset Age of this Age Resolved Age Notes LastModified by Organization Details LastModified Time Mother History of hypertension Not available 04/2021 08:14:33 Mother Hypertensive disorder 62 [email or web address] Not available 13:47:52 Mother Malignant neoplasm of breast 62 [email or web address] Not available 13:48:14 Father Hypertensive disorder [email or web address] Not available 06/24 14:58:40 Father Coronary arterioscler osis Had an LVAD implan doron 2022 64 [email or web address] Not available 10/24/2022 09:12:56 Sister Hypertensive disorder [email or web address] Not available 09/13 10:46:31 Sister Donnie thyroiditis 42 Not available 04/2021 08:14:33 Notes:NO FH of colon or jana st Medical History Condition Response Other N Gout N Blood Diseases N Kidney Stones N Hyperthyroidism N Breast Cancer N Lung Disease N COPD N Depression Y Hypothyroidism N Defects or Inherited Disease N Anesthesia Complications N Headaches/Migraines N Varicose Veins N Anxiety Disorder Y Obesity Y Vision or Eye Problems N Arthritis N Head Injury/Concussion N Polyps N Infertility N Congenital Anomalies N Acid Reflux (GERD) Y Cancer N Stroke N ADHD N Endometriosis N High Cholesterol N Liver Disease N Fibromyalgia N Kidney Disease N Heart Problems N Ear or Hearing Problems N Hospitalizations N Thyroid Problems N GI Problems N Acne N Skin Problems N Eating Disorder N Anemia N Constipation N Bladder Problems N Mental Illness Y Ovarian Cancer N Diabetes N Blood Transfusions N Seizures/Epilepsy N Tuberculosis N AIDS/HIV N Congestive Heart Failure (CHF) N Eczema Y Diverticulitis N Abuse/Domestic Violence N Allergies N Asthma N Reflux/GERD N Hepatitis N Pulmonary Embolism N Hypertension Y Osteoporosis N Chicken Pox Y Autism Spectrum Disorder (ASD) N Gynecological History Statement/Question Response Date of Last Pap Smear 04/28/2021 Date of Last Colonoscopy 06/28/2024 Most Recent Mammogram 02/07/2024 Desired Control Method Sterilizati on Obstetrics History GPAL:G 0 P 0 0 0 0 Immunizations Vaccine Type Date Status Note Provider Nam e and Address Organization Details Recorded Time Tdap 5 completed Not Available [facility] 05/15/2019 02:21:44 COVID-19, mRNA, LNP-S, PF, 30 mcg/0.3 mL dose 1 completed JUAN M Springer, [facility] 04/18/2021 13:28:59 COVID-19, mRNA, LNP-S, PF, 30 mcg/0.3 mL dose 1 completed JUAN M Springer [facility] 04/18/2021 13:29:34 COVID-19, mRNA, LNP-S, PF, 30 mcg/0.3 mL dose 1 completed JUAN M Springer [facility] 04/18/2021 13:30:17 Influenza, split virus, quadrivalent, PF 1 completed Sun Lee JUAN M null, [facility] 12/27/2021 15:00:35 Influenza, split virus, trivalent, PF 4 completed Sun George, [place] null, [facility] 12/27/2021 15:00:35 Influenza, split virus, quadrivalent, PF 0 completed Sunfrantz Lee [place] null, [facility] 12/27/2021 15:00:36 Influenza, split virus, quadrivalent, PF 5 completed Sun George [place] null, [facility] 12/27/2021 15:00:36 Influenza, split virus, quadrivalent, PF 7 completed Sunfrantz Lee [place] null, [facility] 12/27/2021 15:00:36 Influenza, split virus, quadrivalent, PF 8 completed Sun Lee JUAN M null, [facility] 12/27/2021 15:00:36 Influenza, split virus, quadrivalent, PF 6 completed Sun Lee JUAN M null, [facility] 12/27/2021 15:00:36 COVID-19, mRNA, LNP-S, bivalent, PF, 30 mcg/0.3 mL dose 2 completed Myracosmo Chrisilla null, [facility] 10/24/2022 09:02:55 HPV9 3 completed Sun Lee [place] null, [facility] 05/17/2023 09:00:43 HPV9 3 completed Sunfrantz Lee, [place] null, [facility] 05/17/2023 09:00:43 COVID-19, mRNA, LNP-S, PF, gail-sucrose, 30 mcg/0.3 mL 4 completed Sun Lee [place] null, [facility] 05/17/2023 09:00:43 MMR 4 completed Yue Winkler [place] null, [facility] 10/31/2023 13:39:17 MMR 4 completed Linnea Jay null, [facility] 09/02/2023 09:05:59 HPV9 4 completed Yue Winkler [place] null, [facility] 10/31/2023 13:39:17 Tdap 4 completed Sun Lee [place] null, [facility] 02/02/2024 09:09:04 Tdap 4 completed Not Available [facility] 03/01/2025 14:38:25 Influenza, split virus, quadrivalent, PF 9 completed Not Available [facility] 05/15/2019 02:22:10 DTaP 9 completed Not Available [facility] 11/09/2013 14:06:30 IPV 9 completed Not Available [facility] 11/09/2013 14:06:30 IPV 9 completed Not Available [facility] 11/09/2013 14:06:30 DTaP 9 completed Not Available [facility] 11/09/2013 14:06:30 MMR 0 completed Not Available [facility] 11/09/2013 14:06:30 DTaP 0 completed Not Available [facility] 11/09/2013 14:06:30 IPV 0 completed Not Available [facility] 11/09/2013 14:06:30 IPV 3 completed Not Available [facility] 11/09/2013 14:06:30 DTaP 3 completed Not Available [facility] 11/09/2013 14:06:31 MMR 3 completed Not Available [facility] 11/09/2013 14:06:31 Td (adult), 2 Lf tetanus toxoid, preservative free, adsorbed 4 completed Not Available [facility] 11/09/2013 14:06:31 Hep B, adolescent or pediatric 5 completed Not Available [facility] 11/09/2013 14:06:31 Hep B, adolescent or pediatric 5 completed Not Available [facility] 11/09/2013 14:06:31 Hep B, adolescent or pediatric 6 completed Not Available [facility] 11/09/2013 14:06:31 Td (adult), 2 Lf tetanus toxoid, preservative free, adsorbed 9 completed Not Available [facility] 11/09/2013 14:06:31 varicella 2 completed Not Available [facility] 11/09/2013 14:06:31 Tdap 9 completed Not Available [facility] 11/09/2013 14:06:31 Influenza, split virus, trivalent, preservative 9 completed Not Available [facility] 11/09/2013 14:06:31 Influenza, split virus, trivalent, preservative 0 completed Not Available [facility] 11/09/2013 14:06:31 influenza, seasonal, intradermal, preservative free 2 completed Not Available [facility] 11/09/2013 14:06:31 influenza, seasonal, intradermal, preservative free 3 completed Not Available [facility] 11/09/2013 14:06:32 Influenza, split virus, quadrivalent, PF 3 completed Mindy adames, [facility] 04/30/2023 10:57:25 Influenza, split virus, trivalent, PF 4 completed MARY PATEL MD [address], [address], [facility] 02/02/2024 09:31:43 Influenza, split virus, trivalent, PF 5 completed MARY PATEL MD [address], [address], [facility] 01/11/2025 11:35:43 Past Encounters Encounter ID Performer Location Encounter Start Date Encounter Closed Date Diagnosis/Indication Diagnosis SNOMED-CT Code Diagnosis ICD10 Code Diagnosis IMO Codes Diagnosis Note [id number] [facility] [address] [facility] [address] [place] [address] 09/29/2006 00:00:00 [id number] auto[facility]Comm erce [address] [place] [address] 09/28/2007 00:00:00 [id number] auto[facility] erce [address] [place] [address] 10/22/2007 00:00:00 [id number] auto[facility]Comm erce [address] [facility] [address] [place] [address] 11/20/2007 00:00:00 [id number] auto[facility] erce [address] [facility] [address] [place] [address] 06/06/2008 00:00:00 [id number] auto[facility]Comm erce [address] [facility] [address] [place] [address] 10/31/2008 00:00:00 [id number] auto[facility] erce [address] [facility] [address] [place] [address] 01/13/2009 00:00:00 [id number] auto[facility] erce [address] [facility],[address] [place] [address] 04/14/2009 00:00:00 [id number] autoEComm erce [address] [facility],[address] [place] [address] 11/08/2009 00:00:00 [id number] auto[facility]Comm erce [address] [facility],[address] [place] [address] 03/12/2010 00:00:00 [id number] auto[facility]Comm erce [address] [facility] [facility],[address] [place] [address] 05/25/2010 00:00:00 [id number] auto[employer] erce [address] [facility],[address] [place] [address] 11/09/2010 00:00:00 [id number] autoEComm erce [address]40 [facility],[address] [place] [address] 02/27/2012 00:00:00 [id number] auto[employer]Comm erce [address] [facility] [address] [place] [address] 04/29/2012 00:00:00 [id number] autoEComm erce 3640 [facility],[address] [place], [place] [address] 12/30/2012 00:00:00 [id number] autoEComm erce 3640 [facility],[address] [place], [place] [address] 01/06/2013 00:00:00 [id number] autoEComm erce 3640 [facility],[address] [place], [place] [address] 06/22/2013 00:00:00 [id number] Shasha arzola MD Main Office [address] [facility] [address] [place] [address] 03/11/2014 09:34:50 03/11/2014 09:52:31 Needs influenza immunization 363410465 [id number] Shasha arzola MD Main Office [address] [facility] [address] [place] [address] 04/08/2014 13:59:33 04/08/2014 14:12:00 Tuberculosis screening 694382580 [id number] Shasha arzola MD Main Office [address] [facility] [address] [place] [address] 04/11/2014 14:11:26 04/11/2014 16:46:30 [id number] Shasha arzola MD Main Office [address] [facility] [address] [place] [address] 06/24/2014 14:22:26 06/24/2014 16:05:30 Adult health examination 462741512 Relationship problem [id number] see top of note, long talk with pt and then I spoke with her sister who was at visit and interested in helping. I got pt number for [facility] day and crisis line to call and gather info. I told pt the safest step is to not go to apartment, to pickling operator child and stay with sister, get counseling help through [facility] and she is set up a counselor here but first opening was later in June. She will see me next week. PT knows to get a restrainin g order if there is any physical violence or threats. I advised pt to avoid any argueing with boyfriend at this time,. [id number] Shasha arzola MD Main Office [address] [address] [place] [address] 07/01/2014 12:52:55 07/01/2014 13:56:58 Insomnia 819193980 see hx lots of stress, no violence and no physical threats over the past week, resources given to pt by our nurse Nevin and I encouraged pt to set up a situation where they are living separately , she needs to set up her own housing, any threats of violence or violence pt to get a restrainin g order, sounds like things have deescalate d past week. [id number] Shasha arzola MD Main Office [address] [place] [address] 07/08/2014 14:11:11 07/08/2014 14:51:14 Insomnia 317727120 not sleeping well due to stress, giraldo tart counseling here 07/29, no violence or threats of violence, sounds like things deescalate d a bit, pt is looking for housing, return 2 weeks Fatigue 74961593 [id number] Shasha arzola MD Main Office [address] [address] 09/16/2014 11:23:28 09/16/2014 11:59:58 Insomnia 569609278 not sleeping well due to stress, doing counseling and looking for other housing Disorder of 584174645 [id number] Orlando Kelley MD Main Office [address] [place] [address] 10/07/2014 10:46:51 10/07/2014 11:07:10 Administration of diphtheria, pertussis, and tetanus vaccine 091771000 [id number] Robert gastelum MD Main Office [address] [address] 02/24/2015 11:41:10 02/24/2015 12:01:53 Needs influenza immunization 586874167 Z23 [id number] Shasha arzola MD Main Office [address] [place] [address] 04/10/2015 16:09:43 04/10/2015 16:20:39 Tuberculosis screening 165158414 Z11.1 [id number] Shasha arzola MD Main Office [address] [address] [place] [address] 08/04/2015 13:34:37 08/04/2015 14:22:29 Adult health examination 985000734 Z00.00 pap is utd, needs to exercise. had her tubes tied in 05/13. Body mass index 40+ - severely obese 071203333 Z68.41 Genital he rpes simplex 82630343 A60.9 no outbreasks when takes med once a day [id number] Shasha arzola MD Main Office [address] [address] [place] [address] 02/16/2016 15:25:28 02/16/2016 16:08:30 Needs influenza immunization 055583865 Z23 [id number] Shasha arzola MD Main Office [address] [address] [place] [address] 04/10/2016 13:18:09 04/10/2016 13:28:27 Tuberculosis screening 824686928 Z11.1 [id number] Geovanny Hoffman MD Main Office [address] [address] [place] [address] 04/12/2016 15:07:33 04/12/2016 15:32:31 [id number] Theersa Saucedo PA-C Main Office [address] [place] [address] 08/02/2016 15:15:31 08/02/2016 15:53:43 Sprain of ankle and/or foot 116815872 S93.401A REcurrent injury to R. ankle. Osmel Rodriguez , HARISH, referral to orthopedic s at this point. [id number] Shasha arzola MD Main Office [address] [address] [place] [address] 08/07/2016 15:06:25 08/07/2016 16:20:52 Adult health examination 915053805 Z00.00 pap is utd, needs to exercise. had her tubes tied in 1/16. Morbid obesity 430068301 E66.01 working on exercise and ehalthy eating Sprain of ankle 88729555 S93.401D injury more than 6 weeks ago, pt to get xray and see ortho she has appt in a few weeks Obesity 311104814 E66.9 [id number] Masood Saucedo PA-C Main Office [address] [facility] [address] [place] [address] 08/27/2016 14:56:04 08/27/2016 16:37:17 Abscess of skin and/or subcutaneous tissue 92174385 L02.415 c associated cellulitis - will rx for presumed MRSA [id number] Robert gastelum MD Main Office [address] [address] [place] [address] 01/28/2017 14:35:09 01/28/2017 14:47:34 Needs influenza immunization 931741657 Z23 [id number] Shasha arzola MD Main Office [address] [place] [address] 02/05/2017 15:02:58 02/05/2017 16:02:03 Morbid obesity 717225075 E66.01 hard for pt to take care of herself with her kids and work Body mass index 40+ - severely obese 742246342 Z68.41 Genital he rpes simplex 24689421 A60.9 no outbreaks when takes med once a day Knee pain 41909837 M25.5 62 pt to set up ortho [id number] Shasha arzola MD Main Office [address] [address] [place] [address] 04/22/2017 15:19:41 04/22/2017 15:42:29 Tuberculosis screening 400387104 Z11.1 [id number] Shasha arzola MD Main Office [address] [address] [place] [address] 04/24/2017 15:47:31 04/24/2017 15:59:12 [id number] Shasha arzola MD Main Office [address] [address] [place] [address] 06/04/2017 12:38:28 06/04/2017 13:43:19 Anxiety 13485081 F41.9 see hx, pt has never been n meds, feels stressed, anxious, having panic attacks with chest pressure, pt to start med, check thyroid and I will check EKG to rule out underlying conduction issue, most likely all anxiety related Elevated blood-pressure reading without diagnosis of hypertension 103641376 R03.0 followed by renal, she wants to hold off on meds, will work on salt and weight loss Tight chest 24406289 R07 .89 see above, check EKG no cardiac workup indicated, EKG with aout any concerning findings Body mass index 40+ - severely obese 578136364 E66.01 Z68.41 work on weight loss and exercise, 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 [address] [place] [address] 07/19/2017 10:40:05 07/19/2017 11:17:52 Anxiety 19182967 F41.9 off meds, much better, doing counseling and it really helps. [id number] Shasha arzola MD Main Office [address] [facility] [address] [facility] [address] 09/13/2017 10:38:47 09/13/2017 11:26:34 Adult health examination 994866358 Z00.00 pap is utd, needs to exercise. had her tubes tied in 05/13. 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 [address] [place] [address] 02/14/2018 11:05:09 02/14/2018 11:19:31 Needs influenza immunization 964001000 Z23 [id number] Shasha arzola MD Main Office [address] 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 had her tubes tied in 05/13. 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 only eats 1-2 times a day Morbid obesity 636327436 E66.01 hard for pt to take care of herself with her kids and work [id number] Shasha arzola MD Main Office [address] [address] 11/27/2018 15:21:18 11/27/2018 16:33:11 Hypertensive disorder 94281472 I10 BP well controlled continue meds Microscopic hematuria 19 9770275 R31.21 pt was near menses on last check, will repeat next week when away from menses, order is in and pt is aware it is important to do, if repeat shows hematuria will refer to urology Hypokalemia 37369001 E87 .6 pt knows to keep on K and continue hctz for BP control [id number] Shasha arzola MD Main Office [address] [facility] [address] [place] [address] 04/12/2019 15:55:46 04/12/2019 16:23:50 Hypertensive disorder 06691446 I10 BP well controlled , will increase lisinopril to 10mg a day ans stop hctz and KCL to simplify regimen, Needs infl uenza immunization 106800138 Z23 Tuberculos is screening 483887328 Z11.1 [id number] Shasha arzola MD Main Office [address] [facility] [address] [place] [address] 04/14/2019 15:46:11 04/14/2019 15:56:46 [id number] Shasha arzola MD Main Office [address] [address] [place] [address] 09/03/2019 14:15:39 09/03/2019 14:59:21 Major depression single episode, in partial remission 98702055 F32.4 mood is low, lot sof life strssors including working from home, helping kids with schoolwork , not a great relationsh ip with FOB of youngest child. no abuse Insomnia 781373386 G47.0 9 not sleeping well due to stress, start med and consider counseling [id number] Shasha arzola MD Main Office [address] [address] [place] [address] 10/14/2019 12:48:19 10/14/2019 13:38:59 Adult health examination 267546234 Z00.00 pap is due, has legal receptionist appt for 12/15 needs to exercise. had her tubes tied in 05/13. 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 no abx needed Pain in throat 547885427 R07.0 sounds viral Exposure t o viral disease 3777789256 48930 Z03.818 check due to was at work [id number] Shasha arzola MD Main Office [address] [facility] [address] [place] [address] 04/12/2020 14:22:18 04/12/2020 15:21:55 Tuberculosis screening 524725201 Z11.1 Needs infl uenza immunization 870683438 Z23 [id number] Shasha arzola MD Main Office [address] [address] [place] [address] 04/14/2020 13:58:46 04/14/2020 14:52:12 Essential hypertension 68824026 I10 BP well controlled lisinopril refilled Major depr ession single episode, in partial remission 87251318 F32.4 mood is low, anxiety is high, life stresses and winter is hard time, single mom, no suicidal thoughts or plans, will increase citalopram to 20mg a day and recheck on telehealth visit in 6 weeks. Anxiety 69044888 F41.9 off meds, much better, doing counseling and it really helps. 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 I reviewed most recent EKG and no evidence of QT prolongati on, will increase to celexa 40mg a day and check labs below, 3 week f/u telehealth visit Fatigue 94262027 R53.83 low energy, pt to start Vit D 1000 units a day, check labs Hypertensive disorder 38 722678 I10 BP well controlled in past continue meds [id number] Shasha arzola MD Telehealt h [address] [address] [place] [address] 06/07/2020 13:26:29 06/08/2020 14:19:48 Hypertensive disorder 83460863 I10 BP well controlled in past continue meds work on weight loss Major depr ession single episode, in partial remission 70420490 F32.4 depression is better, still active, has a lot of responsibi lity, tolerating increase in med dose. 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 207 [facility] [place] [address] 10/18/2020 15:24:44 10/18/2020 16:08:58 Adult health examination 591531710 Z00.00 pap is due, has legal receptionist appt for 12/15 needs to exercise. had her tubes tied in 05/13. Hypertensive disorder 38 601481 I10 BP well controlled continue meds Screening for malignant neoplasm of cervix 835588100 Z12.4 pt has appt 01/16 Screening for malignant neoplasm of breast 432566109 Z12.39 will see legal receptionist and get pap due for first mammogram Major depr ession single episode, in partial remission 60908166 F32.4 depression is active. 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 [address] [facility] [address] 04/17/2021 14:52:03 04/17/2021 15:11:03 Needs influenza immunization 561442890 Z23 Tuberculos is screening 499767221 Z11.1 [id number] Shasha arzola MD Main Office [address] [facility] 207 [facility] [address] 04/19/2021 14:52:38 04/19/2021 15:58:48 Hypertensive disorder 51167336 I10 BP is elevated today she is stressed. will recheck in office in 3 months lost mom in 12/16 and single parent Major depr ession single episode, in partial remission 86827144 F32.4 depression is active. 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 mom of complicati ons of the port/infec tion [id number] Shasha arzola MD Main Office [address] [facility] [address] [place] [address] 07/25/2021 15:58:13 07/25/2021 16:32:47 Hypertensive disorder 85711585 I10 BP is up will increase lisinopril 20mg a day. 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 [address] [place] [address] 09/10/2021 15:34:38 09/10/2021 16:32:25 Hypertensive disorder 15475940 I10 BP is controlled on present regimen, continue all meds at current dosages. Continue with low salt diet, exercise. Due for PE, will schedule Major depr ession single episode, in partial remission 19790043 F32.4 stable on current dose of medication , no changes [id number] Shasha arzola MD Main Office [address] [facility] [address] [place] [address] 10/19/2021 14:21:01 10/19/2021 15:36:06 Adult health examination 997200787 Z00.00 Physical done today. Social and family history reviewed. Immunizati ons reviewed, advised annual flu shot. She is up not up to date on dental and eye providers, mammogram up to date, Reviewed diet and exercise. Major depr ession single episode, in partial remission 04616167 F32.4 on meds, does not seem to help, will call [facility]AP program for counseling and consider med change, short term followup. Screening for malignant neoplasm of breast 628821638 Z12.39 goes in January Screening for malignant neoplasm of cervix 315426029 Z12.4 pt to make appt Christian is screening 706174562 Z11.1 Low back pain 073008092 M54.59 Rest, stretching at home, start PT program twice a week. Can use mobic in the am , sleep with pillow under knees or between knees. Likely muscular, call if not better with PT and medication s. Right late ral elbow tendinopathy 0733909248 71584 M77.11 ice, avoid repetitive motions, try mobic, if not better would do PT Body mass index 40+ - severely obese 463433495 Z68.42 Discussed need for portion control, more activity, Morbid obesity 613496655 E66.01 [id number] Shasha arzola MD Main Office [address] [facility] 207 [facility] [place] [address] 12/27/2021 08:14:18 12/27/2021 15:40:40 Major depression single episode, in partial remission 67714620 F32.4 mood fairly stable, will refill meds at same doses. Hypertensive disorder 38 195378 I10 compliant on meds, continue Tendinitis of right wrist region 7654156711 5910774 M67.833 uses NSAIDS as needed [id number] Ernestine William MD [facility] 3640 [facility] [address] [place] [address] 01/07/2022 10:42:49 01/07/2022 14:06:56 Urinary tract infectious disease 96250462 N39.0 begin abx as directed for 5 days, increase fluids. If symptoms return, pt was advised to call and have urine tested first. [id number] Shasha arzola MD [facility] 3640 [facility] 207 [facility] [address] 06/26/2022 12:35:05 06/26/2022 13:59:00 Hypertensive disorder 43857947 I10 compliant on meds, continue Major depr ession single episode, in partial remission 40263421 F32.4 mood fairly stable, will refill meds at same doses. stress with father with severe lung disease Body mass index 40+ - severely obese 906931480 E66.01 Z68.41 work on weight loss and exercise, busy mom [id number] MARY PATEL MD Main Office 36[address] [facility] [address] [place] [address] 10/24/2022 08:59:51 10/24/2022 09:57:35 Adult health examination 343708924 Z00.00 Health Maintenanc e FemaleA) Patient was counseled on healthy diet, exercise and nutrition due to BMI of 49.4 B) ScreeningL ast Mammogram: start at age 50 stop at 74Date: 01/26/2022 Result: BIRADS-1Ne xt: 02/17 Last Pap smear: start at age 21 to age 65Date: 01/21/2013 Results: no atypical cells, HPV negativeNe xt: 5 years, due, 12/2016, will get records Last Colonoscop y: start at age 45-75Date: Result: Next: not yet of age Last DEXA scan:Date: due at 65Result: ??? C) Vaccines:I nfluenza: not this yearTdAP: 10/07/2014 Zoster: due at 31WDT71: due at 07NVVQ96: due at 04SWF80:PC V15:COVID: 07/19/2020 , 08/11/2020 , 02/02/2021 , 02/14/2022 D) Routine blood work orderedE) Updated patient's history RTC in one year for annual exam or sooner if any acute complaints Essential hypertension 17646336 I10 - at goal- BP today 124/82- c/w lisinopril 20mg QD Pt counselled on:-Dietar y Approaches to [...] your ankles.>Montes ve trouble with your vision. Genital he rpes simplex 86142077 A60.9 - pt takes valacyclov ir when there is an outbreak Liver enzy mes level above reference range 055151985 R74.01 R74.8 - in may pt was noted that pt alk phos was at 140 and ALT is at 34- ordered repeat hepatic function panel with GGT- if still elevated will order US liver Major depr ession single episode, in partial remission 26381210 F32.4 - PHQ-9 score of 10- c/w citalopram 40mg and bupropion XL 150mg QD- denies SI/HI- nena montes de oca provided- RTC in 6 months Fatigue 88061138 R53.83 Z00.00 Hyperlipidemia 38718812 E78.5 Z00.00 Obstructiv e sleep apnea syndrome 45603473 G47.33 - pt is snoring at night and has a lot of fatigue- STOP-BANG score of 4- mallampati score of 3- pt referred to sleep medicine for sleep test Lateral epicondylitis 20 7443677 M77.11 - chronic- pt has been taking meloxicam 15mg QD- pt referred to orthopedic s for discussion of possible injection at the joint Body mass index 40+ - severely obese 534190826 E66.01 Z68.41 - BMI is 49.4- pt does follow with a nutritioni st- discussed weight loss surgery- Cut down on (limit) fast foods, sweets, and processed snack foods. - Limit alcohol intake to no more than 1- 2 drinks a day for men. One drink equals 12 oz of beer, 5 oz of wine, or 1 oz of hard liquor. - Keep a weight loss journal and keep track of the food and portions that you eat. - The exercise that you do- 4 times a week or 150 minutes cumulative of moderate exercise golden amin [id number] MARY PATEL MD Main Office [address]40 [facility] [address] [place] [address] 04/24/2023 13:09:25 04/24/2023 13:39:46 Hypertensive disorder 10658763 I10 - at goal- BP today is 163/106 and on repeat 148/88- increased lisinopril from 20mg to 30mg QD Pt counselled on:-Dietar y Approaches to [...] your ankles.>Montes ve trouble with your vision. Major depr ession single episode, in partial remission 99264985 F32.4 - PHQ-9 score of 0- c/w citalopram 40mg and bupropion XL 150mg QD- does not see a counsellor - denies SI/HI- counsellin g provided Needs infl uenza immunization 431268881 Z23 Acute otitis externa 302 55326 H60.501 - rigth sided- TM was opacified with tenderness on exam- pt given ofloxacin ear drops for 7 days [id number] MARY PATEL MD Main Office [address] [facility] [address] [place] [address] 05/17/2023 08:50:45 05/17/2023 09:22:34 Hypertensive disorder 63257221 I10 - at goal- BP today is 127/79- c/w lisinopril from 30mg QD Pt counselled on:-Dietar y Approaches to [...] your ankles.>Montes ve trouble with your vision. Palpitations 84273696 R0 0.2 - chronic problem associated with stress and anxiety- recent CBC and TSH are normal- recommende d exercise a patient is increasing in weight however patient has several life stressors which makes it hard [id number] MARY PATEL MD Main Office [address] [address] 10/31/2023 13:27:33 10/31/2023 14:18:59 Adult health examination 231739701 Z00.00 Health Maintenanc e FemaleA) Patient was counseled on healthy diet, exercise and nutrition due to BMI of 52 B) ScreeningL ast Mammogram: start at age 50 stop at 74Date: 02/05/2023 Result: BIRADS-1Ne xt: 02/18 Last Pap smear: start at age 21 to age 65Date: 01/21/2013 Results: no atypical cells, HPV negativeNe xt: 5 years, due, 12/2016, will get records pt had it 2022 Last Colonoscop y: start at age 45-75Date: Result: Next: ordered Last DEXA scan:Date: due at 65Result: ??? C) Vaccines:I nfluenza: 04/24/2023 TdAP: 10/07/2014 Zoster: due at 56SLP71: due at 42LEPZ69: due at 98FXZ84:PC V15:COVID: 07/19/2020 , 08/11/2020 , 02/02/2021 , 02/14/2022 , 04/29/2023 D) Routine blood work orderedE) Updated patient's history RTC in one year for annual exam or sooner if any acute complaints Hypertensive disorder 38 507254 I10 - elevated today- BP today is 140/81 and same on repeat- c/w lisinopril from 30mg QD- RTC in 3 months for repeat blood pressure Pt counselled on:-Dietar y Approaches to Stop [...] your ankles.>Montes ve trouble with your vision. Palpitations 88113082 R0 0.2 - chronic problem associated with stress and anxiety- recent CBC and TSH are normal- recommende d exercise a patient is increasing in weight however patient has several life stressors which makes it hard Major depr ession single episode, in partial remission 85789147 F32.4 - PHQ-9 score of 2- c/w citalopram 40mg and bupropion XL 150mg QD- does not see a counsellor - denies SI/HI- counsellin g provided Obstructiv e sleep apnea syndrome 47482544 G47.33 - pt is snoring at night and has a lot of fatigue- STOP-BANG score of 4- mallampati score of 3- pt referred to sleep medicine however patient did not book appoitment Liver enzy mes level above reference range 284384720 R74.01 R74.8 - in may pt was noted that pt alk phos was at 140 and ALT is at 34- ordered repeat hepatic function and alkaline phosphatas e- US liver has been performed in 2021 showing fatty liver disease Fatigue 09438498 R53.83 Z00.00 Hyperlipidemia 49568212 E78.5 Z00.00 FASTING HIV screening 182813547 Z11.4 Hepatitis C screening 41 5045958 Z11.59 Screening for malignant neoplasm of colon 018718382 Z12.11 Inadequate immune status 656695566 Z23 Requires a tetanus booster 321990727 Z28.39 Edema of l ower extremity 371846216 R60.0 - most likely due to venous insuffienc y vs heat edema- pt however is very concerned as there is a family hx of CHF> ordered bnp and US echo Body mass index 40+ - severely obese 046458884 E66.01 Z68.43 - worsening- BMI is 52> will try get patient on GLP-1 has her BMI continues to increase and it would be beneficial for her overall health- pt does follow with a nutritioni st- discussed weight loss surgery- Cut down on (limit) fast foods, sweets, and processed snack foods.- Limit alcohol intake to no more than 1- 2 drinks a day for men. One drink equals 12 oz of beer, 5 oz of wine, or 1 oz of hard liquor.- Keep a weight loss journal and keep track of the food and portions that you eat.- The exercise that you do- 4 times a week or 150 minutes cumulative of moderate exercise recommende d. The patient is over 18 years old, with a BMI over 30 kg/m. Actively engaging in behavioral modificati ons, including dietary changes and exercise, for more than three months and is committed to continuing these alongside the medication We discussed the injection technique, advising alternate injection sites weekly and cleaning the area with alcohol beforehand . The patient is to update me in two weeks about their progress, allowing for dose adjustment s as needed. Patient is also tasked with confirming medication availabili ty with the pharmacy. The patient is to monitor neck for any lumps and report any findings. Side effects discussed include gastrointe stinal issues such as constipati on, bowel obstructio n, nausea, and vomiting, with nausea and constipati on being particular ly common in the first two days post-injec tion. These symptoms usually subside with regular use. Instructed to avoid combining this treatment with other GLP-1 receptor agonists. Regular weight check was advised and will follow up in 3 months. [id number] MARY PATEL MD Main Office [address] [facility] [address] [facility] [place] [address] 11/10/2023 12:59:19 11/10/2023 14:07:36 Type 2 diabetes mellitus without complication 007682975 E11.9 - new diagnosis- HbA1c 6.5 done on 11/03/2023- will start patient on ozempic which will help with weight and diabetes- if ozempic gets denied will order metformin- pt is currently on ACEi- will do foot exam at next visit- pt advised to see ophthalmol ogist Liver enzy mes level above reference range 033087481 R74.01 R74.8 - elevated alkaline phosphatas e more than baseline currently at 163> liver etiology- US liver has been performed in 2021 showing fatty liver disease, ordered repeat U/S- negative hep B and C Poor concentration 14566 005 R41.840 - pt as never been diagnosed with ADHD but is 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 [address] [place] [place] [address] 02/02/2024 09:05:36 02/02/2024 09:32:47 Hypertensive disorder 79495965 I10 - at goal- BP today is 120/83- c/w lisinopril from 30mg QD- RTC in 3 months for repeat blood pressure Pt counselled on:-Dietar y Approaches to Stop [...] your ankles.>Montes ve trouble with your vision. Major depr ession single episode, in partial remission 23158226 F32.4 - PHQ-9 score of 0- c/w citalopram 40mg- does not see a counsellor - denies SI/HI- nena montes de oca provided 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 104100895 E11.9 - new diagnosis- HbA1c 6.5 done on 11/03/2023- increased ozempic from 0.25mg to 0.5mg weekly- if ozempic gets denied will order metformin- pt is currently on ACEi- will do foot exam at next visit 04/2024- pt advised to see ophthalmol ogist (was seen in October 2023) -> will request Liver enzy mes level above reference range 423163741 R74.01 R74.8 - elevated alkaline phosphatas e more than baseline currently at 163> liver etiology- US liver has been performed in 2021 showing fatty liver disease- US liver 10/2023: Echogenic liver likely representi ng hepatic steatosis. No suspicious lesion.- negative hep B and C Needs infl uenza immunization 485697554 Z23 19 YEARS AND OLDER ONLY Generalize d anxiety disorder 87814073 F41.1 - JAKI-7 score of 12- due to patient's increase in stress will increase wellbutrin from 150mg to 300mg- c/w citalopram 40mg QD- nena montes de oca provided [id number] MARY PATEL MD Main Office [address] [facility] [address] [facility] [place] [address] 05/06/2024 09:28:44 05/06/2024 10:07:38 Hypertensive disorder 52071309 I10 - at goal- BP today is 129/86- c/w lisinopril from 30mg QD- RTC in 3 months for repeat blood pressure Pt counselled on:-Dietar y Approaches to Stop [...] your ankles.>Montes ve trouble with your vision. Major depr ession single episode, in partial remission 01151863 F32.4 - c/w citalopram 40mg- does not see a counsellor - denies SI/HI- counsellin g provided Generalize d anxiety disorder 84082768 F41.1 - c/w wellbutrin from 300mg -> pt is having less heart palpitatio ns on this dosage- c/w citalopram 40mg QD- counsellin g provided 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 743831277 E11.9 - new diagnosis- HbA1c 6.2 done on 05/06/2024- increased ozempic from 0.5mg to 1mg weekly- pt is currently on ACEi- foot exam done on 05/06/2024: negative- pt advised to see ophthalmol ogist 11/13/2023 -> negative Liver enzy mes level above reference range 107951784 R74.01 R74.8 - elevated alkaline phosphatas e more than baseline currently at 163> liver etiology- US liver has been performed in 2021 showing fatty liver disease- US liver 10/2023: Echogenic liver likely representi ng hepatic steatosis. No suspicious lesion.- negative hep B and C Dyspnea on exertion 6084 5006 R06.09 - with certain activities , mostly with exertion- do believe this may be due to obesity, currently on ozempic however little change in weight> to consider monjaro if no improvemen t on 1.7mg dosage- echo performed, requested results- ordered PFT testing Obstructiv e sleep apnea syndrome 40376908 G47.33 - pt is snoring at night and has a lot of fatigue- STOP-BANG score of 4- mallampati score of 3- has a CPAP and uses nightly [id number] MARY PATEL MD Main Office [address] [facility] [address] [facility] [place], [place] M [address] 08/06/2024 09:50:39 08/06/2024 10:26:49 Hypertensive disorder 48420697 I10 - at goal- BP today is 135/84- c/w lisinopril from 30mg QD- started patient on metoprolol succinate ER 25mg to better control and BP and to help with intermitte nt palpitatio ns- RTC in 3 months for repeat blood pressure Pt counselled on:-Dietar y Approaches to Stop [...] your ankles.>Montes ve trouble with your vision. Major depr ession single episode, in partial remission 06997453 F32.4 - c/w citalopram 40mg- does not see a counsellor - denies SI/HI- counsellin g provided Generalize d anxiety disorder 74965733 F41.1 - c/w wellbutrin from 300mg -> pt is having less heart palpitatio ns on this dosage- c/w citalopram 40mg QD- counsellin g provided 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 081043686 E11.9 - HbA1c 6.1 done on 08/06/2024- increased ozempic from 1mg to 2mg weekly- pt is currently on ACEi- foot exam done on 05/06/2024: negative- pt advised to see ophthalmol ogist 11/13/2023 -> negative Liver enzy mes level above reference range 669050238 R74.01 R74.8 - elevated alkaline phosphatas e more than baseline currently at 163> liver etiology- US liver has been performed in 2021 showing fatty liver disease- US liver 10/2023: Echogenic liver likely representi ng hepatic steatosis. No suspicious lesion.- negative hep B and C- normal GGT and negative for M2 antibody Dyspnea on exertion 6084 5006 R06.09 - with certain activities , mostly with exertion- do believe this may be due to obesity, currently on ozempic however little change in weight> to consider monjaro if no improvemen t on 1.7mg dosage- echo performed, requested results- ordered PFT testing Obstructiv e sleep apnea syndrome 19137498 G47.33 - pt is snoring at night and has a lot of fatigue- STOP-BANG score of 4- mallampati score of 3- has a CPAP and uses nightly Low back pain 738885688 M54.50 - has problem on the SI joint, hx of accident- was physiatry however cannot go back due to financial constraint s- ordered x-ray of the spine [id number] MARY PATEL MD Main Office [address] [facility] [address] [facility] [place] [address] 11/04/2024 09:20:24 11/04/2024 09:54:10 Hypertensive disorder 86884363 I10 - at goal- BP today is 122/80- c/w lisinopril from 30mg QD- started patient on metoprolol succinate ER 25mg to better control and BP and to help with intermitte nt palpitatio ns Pt counselled on:-Dietar y Approaches to Stop [...] your ankles.>Montes ve trouble with your vision. Major depr ession single episode, in partial remission 58644372 F32.4 - PHQ-9 score of 2- c/w citalopram 40mg- does not see a counsellor - denies SI/HI- counsellin g provided Generalize d anxiety disorder 32839798 F41.1 - JAKI-7 score of 6- c/w wellbutrin from 300mg -> pt is having less heart palpitatio ns on this dosage- c/w citalopram 40mg QD- counsellin g provided 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 268699518 E11.9 - under good control- HbA1c 6.1 done on 08/06/2024- ozempic was controllin g DM however not helping with weight as a result will try Mounjaro> started at 2.5mg weekly- pt is currently on ACEi- foot exam done on 05/06/2024: negative- pt advised to see ophthalmol ogist 11/13/2023 -> negative- will recheck levels Liver enzy mes level above reference range 991392349 R74.01 R74.8 - elevated alkaline phosphatas e more than baseline currently at 163> liver etiology- US liver has been performed in 2021 showing fatty liver disease- US liver 10/2023: Echogenic liver likely representi ng hepatic steatosis. No suspicious lesion.- negative hep B and C- normal GGT and negative for M2 antibody Dyspnea on exertion 6084 5006 R06.09 - with certain activities , mostly with exertion- do believe this may be due to obesity, currently on ozempic however little change in weight> to consider monjaro if no improvemen t on 1.7mg dosage- echo performed, requested results- PFT testing showed mild restrictiv e disease likely due to weight Obstructiv e sleep apnea syndrome 74536970 G47.33 - pt is snoring at night and has a lot of fatigue- STOP-BANG score of 4- mallampati score of 3- has a CPAP and uses nightly Low back pain 877353548 M54.50 - has problem on the SI joint, hx of accident- was physiatry however cannot go back due to financial constraint s- x-ray of the spine showed degenerati ve diseae General ex amination of patient 773045810 Z00.00 [id number] Health Maintenanc e FemaleA) Patient was counseled on healthy diet, exercise and nutrition due to BMI of 50.9 B) ScreeningL ast Mammogram: start at age 50 stop at 74Date: 02/07/2024 Result: BIRADS-2Ne xt: 02/19 Last Pap smear: start at age 21 to age 65Date: 01/21/2013 Results: no atypical cells, HPV negativeNe xt: 5 years, due, 12/2016, will get records pt had it 03/12/2024 Last Colonoscop y: start at age 45-75Date: 06/28/2024Re sult: hemorrhoid sNext: 10 years, 06/2034 Last DEXA scan:Date: due at 63Result: ??? C) Vaccines:I nfluenza: 02/02/2024T dAP: 11/10/2023Z sabrina: due at 71RSR55: due at 60DUKX78: due at 15ATQ47:PC V15:COVID: 07/19/2020 , 08/11/2020 , 02/02/2021 , 02/14/2022 , 04/29/2023 D) Routine blood work orderedE) Updated patient's history RTC in one year for annual exam or sooner if any acute complaints Fatigue 85916305 R53.83 Z00.00 Hyperlipidemia 58659766 E78.5 Z00.00 - at goal- ASCVD score of 3.1%- lipid panel 11/03/2023: cholestero l-1778, triglyceri debbie-154, HDL-43, LDL-108 Pt counselled on:- Eat a heart-heal thy diet - Choose healthy fats. Avoid saturated fats that are found primarily in red meat, oliver, sausage, and full-fat dairy products. Advised to choose lean proteins like chicken, turkey, and fish when possible. Switch to low-fat or fat-free dairy. And use monounsatu rated fats like olive and canola oil for cooking. - Cut out the trans fats. Trans fats are found in fried food and processed foods, like cookies, crackers, and other snacks. - Eat more omega-3s. Counseled on eating more fish, including salmon, mackerel, whatley ,nuts and seeds, like walnuts and flax seeds. - Increase your fiber intake. By eating more oats, brain, fruits, beans, and vegetables , can lower your LDL cholestero l levels. - Eat more fruits and veggies. Inadequate immune status 396748951 Z01.84 Morbid obesity 997643087 E66.01 Z68.43 31133 - improving- BMI is 50.9> will try get patient on GLP-1 has her BMI continues to increase and it would be beneficial for her overall health- pt does follow with a nutritioni st- discussed weight loss surgery- Cut down on (limit) fast foods, sweets, and processed snack foods.- Limit alcohol intake to no more than 1- 2 drinks a day for men. One drink equals 12 oz of beer, 5 oz of wine, or 1 oz of hard liquor.- Keep a weight loss journal and keep track of the food and portions that you eat.- The exercise that you do- 4 times a week or 150 minutes cumulative of moderate exercise recommende d. The patient is over 18 years old, with a BMI over 30 kg/m. Actively engaging in behavioral modificati ons, including dietary changes and exercise, for more than three months and is committed to continuing these alongside the medication We discussed the injection technique, advising alternate injection sites weekly and cleaning the area with alcohol beforehand . The patient is to update me in two weeks about their progress, allowing for dose adjustment s as needed. Patient is also tasked with confirming medication availabili ty with the pharmacy. The patient is to monitor neck for any lumps and report any findings. Side effects discussed include gastrointe stinal issues such as constipati on, bowel obstructio n, nausea, and vomiting, with nausea and constipati on being particular ly common in the first two days post-injec tion. These symptoms usually subside with regular use. Instructed to avoid combining this treatment with other GLP-1 receptor agonists. Regular weight check was advised and will follow up in 3 months. [id number] MARY PATEL MD Main Office [address] [place] [address] 01/11/2025 10:59:46 01/11/2025 11:41:35 Major depression single episode, in partial remission 17945360 F32.4 - worsening- PHQ-9 score of 14- most likely due to increase stress patient [...] therapist, this was recommende d- denies SI/HI- counsellin g provided Generalize d anxiety disorder 69430370 F41.1 865086 - JAKI-7 score of 20- worsening- c/w wellbutrin from 300mg -> pt is [...] menopause> please note also discussed duloxetine - counsellin g provided Needs infl uenza immunization 233481395 Z23 19 YEARS AND OLDER ONLY Chronic low back pain 27 1942301 M54.50 G89.29 44417349 - has problem on the SI joint, hx of accident- was physiatry however cannot go back due to financial constraint s and ther was no improvemen t after injection therapy- x-ray of the spine showed degenerati ve disease- pt referred to alternativ e physiatris t> also discussed getting an MRI of the lumbar spine which she will have with specialist [id number] MARY PATEL MD Main Office [address] [facility] [address] 03/01/2025 14:36:29 03/01/2025 15:15:56 Hypertensive disorder 55984371 I10 - at goal- BP today is [...] 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 662453299 E11.9 - worsening- HbA1c 6.7 done on 03/01/2025- ozempic was controllin g DM however not helping with weight as a result will try Mounjaro> increased mounjaro from 2.5mg to 5mg weekly- pt is currently on ACEi- foot exam done on 05/06/2024: negative- pt advised to see ophthalmol ogist 11/13/2023 -> negative- will recheck levels Major depr ession single episode, in partial remission 24508102 F32.4 - worsening- PHQ-9 score of 13- [...] de oca provided Generalize d anxiety disorder 19023916 F41.1 077737 - JAKI-7 score of 18- stable- c/w [...] menopause> please note also discussed duloxetine - counselclinton montes de oca provided Chronic low back pain 27 3194851 M54.50 G89.29 21533459 - has problem on the SI joint, hx of accident- was physiatry however cannot go back due to financial constraint s and ther was no improvemen t after injection therapy- x-ray of the spine showed degenerati ve disease- pt referred to alternativ e physiatris t and seen on 02/21/2025 > MRI of the lumbar spine ordered Poor concentration 40736 005 R41.840 471403 - pt as never been diagnosed with [...] by Organization Details LastModified Time None Recorded Advance Directives Directive N: Payers Insurance Date Sequence Insurance Name Policy Number Policy Mata Covered Member ID Mata Member ID Guarantor Name 04/08/2025 1 [place] [facility] Johana A Amish [id number] Johana Wellington 02/28/2025 1 [facility] (HMO) [id number] Johana Wellington [id number] Johana Wellington 07/25/2021 1 [facility] - MEDICAID ESSENTIAL (MEDICAID HMO) [id number] Johana Wellington [id number] Johana Wellington 07/25/2021 1 [facility] - [facility] (MEDICAID REPLACEMENT - HMO) [id number] Johana Wellington [id number] Johana Wellington 07/25/2021 1 [facility] [facility] - TOGETHER (MEDICAID HMO) Johana Wellington [id number] Johana Wellington 07/25/2021 2 [place] [facility] Johana Wellington [id number] Johana Wellington Notes Date Note Type Note Provider Name and Address Organization Details Recorded Time 05/06/2024 text/html Hypertension F/UReported by PatientHPIFor lifestyle, patient reportsnot exercising regularlybut reportslimiting/avoidin g salt. For associated symptoms, patient reportsno dizziness,no [...] vision,no numbness of feet, andno calluses on feet. Johana Wellington is a 43 year old F who was seen in the clinic for follow-up on her blood pressure and diabetes. MARY PATEL MD [address] [address], [place], [address], [facility] 05/06/2024 10:09:48 08/06/2024 text/html Hypertension F/UReported by PatientHPIFor lifestyle, patient reportsnot exercising regularlybut reportslimiting/avoidin g salt. For associated symptoms, patient reportsno dizziness,no [...] vision,no numbness of feet, andno calluses on feet. Johana Wellington is a 43 year old F who was seen in the clinic for follow-up on her blood pressure and diabetes. MARY PATEL MD [address], [address], [facility] 08/06/2024 11:02:55 11/04/2024 text/html Generic HPI TemplateReported by PatientROS as noted in the HPI Johana Wellington is a 44 year old year old F who presented to the clinic for her annual exam. Pt denies any emergency room visits or hospitalizations during this time. Pt continues to go to school and work. Currently undergoing clinical. Complaints: none Is not using ASA.OTC/Herbal supplements use: b12, swimpmya-fzwznuozaos-rc t C- [place], vitamin D3 Gynecologic HistoryPatient's last menstrual period was a few weeks agoMenstrual cycle lasts 5-7 days, without spotting, with clothsMenstrual cycle: monthlySexually active: yesContraception: hx of tubal ligationSTD in the pastDenies cysts, fibroids, abnormal pap smears Obstetric HistoryGravida: 4Para: 4AB: 0Livin (vaginal)Complications: pt has one C/S Drug use: neverEtoh use: nevertobacco use: neverspf/derm: uses when outside Dental: every 6 monthsEye: every yearDiet: regular, nutritionistActivity: does not MARY PATEL MD [address] [address], [place], [address], [facility] 11/04/2024 10:02:12 01/11/2025 text/html Back PainReporte d by PatientHPIFor quality, patient reportssharp. For severity, patient reportsworsening. For aggravating factors, patient reportsmovement/positio charley. For location, patient reportspain is not radiating. For duration, patient reportsintermittentandc hronic. For onset/timing, patient reportsrecurrent episode. For context, patient reportsprior back problems,used medications for back pain, andhad evaluations by back specialist. For associated symptoms, patient reportsno numbness of the legs/feet,no tingling,no incontinence, andno shortness of breath.Was previously seeing [facility] for this problem. Was getting injections however provided little relief. Pain is located in her lower back. Worse when standing for long periods of time. Patient needs to lean forward or sit down to get relief. Anxiety/DepressionRepor doron by PatientHPIFor quality, patient reportsmood worseandincreased anxiety. For context, patient reportsfamily problems. For associated symptoms, patient reportsweight gain (7 lbs),emotional lability,high irritability,anxiety,de pression,restlessness/a gitation, andsleeping more (hypersomnia)but reportsdenies homicidal ideations. For severity, patient reportsdenies suicidal ideations,able to maintain relationships, anddoes not interfere with activities of daily living. For onset/timing, patient reportsstill present. For modifying factors, patient reportsmedications as directed.ROS as noted in the HPI Johana Wellington is a 44 year old F who presents to the clinic to speak about her mental health. Patient has been having a hard time with her daughter. She sent a message MD on 01/05/2025: I'm not exactly sure what's going on with me but lately I've been extremely tired all the time, no interest in doing anything. I have to force myself to do things. I've been out of work on FMLA since 12/06 due to my daughter's mental health issues. I also have fog brain that is not going away and it's been like that for years now. If you are able to call I can try to explain it more. Patient has been feeling more fatigued than usual. She finds herself wanted to sleep all day and being very much on edge. Continues to have a lot stress with daughter. She is questioning if her symptoms are coming from menopause. MARY PATEL MD [address] [address], [place], [address], [facility] 01/11/2025 12:37:43 03/01/2025 text/html Hypertension F/UReported by PatientHPIFor lifestyle, patient reportsnot exercising regularlybut reportslimiting/avoidin g salt. For associated symptoms, patient reportsno dizziness,no [...] medication. Is experiencing anxiety with this switch. MARY PATEL MD [id number] [id number], [place], [id number], [facility] 03/01/2025 19:23:44 OBGyn Episode No OBEpisode recorded.
== END 2025-04-15 09:46 | disposition home or self-care (01) ==
LOC: HO.HPHYSR 09:45
PROVIDERS: PCP Student in an Organized Health Care Education/Training Program; Visit Provider Physical Medicine & Rehabilitation
DX: M53.3 Sacrococcygeal disorders, not elsewhere classified (principal); M46.1 Sacroiliitis, not elsewhere classified
CPT/HCPCS: 27096; J2003; J3301; Q9967

== ENCOUNTER 2025-04-15 09:45 | Outpatient (AMB) | payer MEDICAID, SELFPAY ==
--- NOTE | 2025-04-15 09:47 | A.PHYSOV ---
Vital Signs 04/15/25 09:51 Height 5 ft 3.5 in Weight 306 lb BMI 53.3 Pulse 92 Temp 98 F Intake Visit Reasons: Left Sacroiliac Joint Injection Intake Note: Patient is a 44 year old female in office for a Left Sacroiliac Joint Injection. 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 Skin over lumbar sacral area was prepped and draped in the usual sterile manner. The inferior portion of the left sacroiliac joint was visualized utilizing fluoroscopy. 5 in 22 gauge spinal needle was introduced percutaneously and advanced into the joint. Needle placement was verified utilizing 0.5 cc of Omnipaque contrast solution. 2.5 cc of therapeutic solution containing 40 mg of triamcinolone and 2% lidocaine was injected after negative aspiration for blood. The C-arm was obliqued about 30? in the contralateral direction an area just medial the proximal portion of the sacroiliac joint was visualized. 5 in 22 gauge spinal needle was introduced percutaneously and advanced to enter the area. Once in place, needle placement was identified utilizing 1 cc of Omnipaque contrast solution. Total volume of 2.5 cc containing 40 mg of triamcinolone and 2% lidocaine was injected to block the lateral branches at the sacroiliac ligament. Radiation exposure was documented in the chart. Sacroiliac Joint Injections 61021 - use with FL Gd order: Left All charges added?: Procedure code (CPT) selection complete Office Meds Kenalog 40 mg/mL suspension for injection Performing Provider: Geovanny Marie DO Performing Location: [facility] Administered by: Geovanny Marie DO on 04/15/25 09:49 Dose Route Admin Location Dispensed Lot Number Expiration Date [facility] Bat Person 80 mg intra-articular 2 mL [id number] [employer] Total Dispensed Waste 2 mL 0 % lidocaine (PF) 20 mg/mL (2 %) injection solution Performing Provider: Geovanny Marie DO Performing Location: [facility] Administered by: Geovanny Marie DO on 04/15/25 09:49 Dose Route Admin Location Dispensed Lot Number Expiration Date [facility] Bat Person 120 mg intra-articular 10 mL [id number] [employer] Total Dispensed Waste 10 mL 40 % Omnipaque 300 300 mg iodine/mL intravenous solution Performing Provider: Geovanny Marie DO [facility] Administered by: Geovanny Marie DO on 04/15/25 09:49 Dose Route Admin Location Dispensed Lot Number Expiration Date [facility] Bat Person 3 mL intra-articular 10 mL [id number] [employer] Total Dispensed Waste 10 mL 70 % Assessment & Plan Assessment & Plan (1) Sacroiliac dysfunction: Code(s): M53.3 - Sacrococcygeal disorders, not elsewhere classified Category: Medical Plan: Injection (2) Sacroiliac inflammation: Code(s): M46.1 - Sacroiliitis, not elsewhere classified Category: Medical Plan: Injection Orders: Orders [place] Guided Sacroiliac Jt Inj LT Today M46.1 - Sacroiliitis, not elsewhere classified, M53.3 - Sacrococcygeal disorders, not elsewhere classified AMB Sacroiliac Joint Injection Today M46.1 - Sacroiliitis, not elsewhere classified, M53.3 - Sacrococcygeal disorders, not elsewhere classified Coding Level of Care Code Procedure Only Diagnoses Sacroiliac dysfunction M53.3 Sacroiliac inflammation M46.1 CPT Codes AMB Sacroiliac Joint Injection - Hip intraarticular Injection - : Left ([id number])
[2025-04-15 09:51] VITALS: PULSE 92; TEMP 36.6; BMI 53.3
== END 2025-04-15 10:04 | disposition home or self-care (01) ==
LOC: HO.HPHYS 09:45
PROVIDERS: PCP Student in an Organized Health Care Education/Training Program; Visit Provider Physical Medicine & Rehabilitation
DX: M53.3 Sacrococcygeal disorders, not elsewhere classified (principal); M46.1 Sacroiliitis, not elsewhere classified
CPT/HCPCS: 27096